=== PATIENT | female | born 1995 | race Caucasian/White ===

== ENCOUNTER 2018-07-11 12:03 | Emergency (ER) | payer BC ==
[~2018-07-11] VITALS: Ht 167.6 cm; Wt 54.4 kg
[2018-07-11] MEDS ORDERED: METO50TA16 PO (12:17)
[2018-07-11] MEDS ORDERED: CYCLOBENZAPRINE 10 MG (12:17)
[2018-07-11] MEDS ORDERED: GABA-534 PO (12:17)
[2018-07-11] MEDS ORDERED: MAGN400O6 PO (12:17)
[2018-07-11] MEDS ORDERED: LOPE2CAP40 PO (12:17)
[2018-07-11] MEDS ORDERED: CLON0.1T PO (12:17)
[2018-07-11] MEDS ORDERED: TRAZ-214 PO (12:17)
[2018-07-11] MEDS ORDERED: FAMO1TAB29 PO (12:17)
[2018-07-11] MEDS ORDERED: ONDA4TAB8 PO (12:17)
[2018-07-11] MEDS ORDERED: ACET-2605 PO (12:17)
[2018-07-11] MEDS ORDERED: BISM262O28 PO (12:17)
[2018-07-11] MEDS ORDERED: MELA1TAB9 PO (12:17)
[2018-07-11] MEDS ORDERED: RISP1TAB27 PO (12:17)
[2018-07-11] MEDS ORDERED: IBUP-1957 PO (12:17)
[2018-07-11] MEDS ORDERED: IBUPROFEN 600 MG TABLET PO ONE (12:30)
[2018-07-11] MEDS ORDERED: IBUPROFEN 600 MG TABLET ONE (12:37)
[2018-07-11 13:05] VITALS: BP 115/69
--- NOTE | 2018-07-11 13:05 | NUR ---
Patient discharged to home in stable conditon with staff from detox center. Written and verbal after care instructions given. Patient verbalizes understanding of instructions.
== END 2018-07-11 13:06 | disposition home or self-care (01) ==
LOC: ER 12:07
DX: R07.89 Other chest pain (principal); Z88.2 Allergy status to sulfonamides; Z88.8 Allergy status to other drugs, medicaments and biological substances
CPT/HCPCS: 71045; 93005; A4663

== ENCOUNTER 2018-08-06 22:23 | Emergency (ER) | payer BC ==
[~2018-08-06] VITALS: Ht 167.6 cm; Wt 56.7 kg
[~2018-08-06 22:23] MED LIST: ACET-2605 PO; BISM262O28 PO; CLON0.1T PO; CYCLOBENZAPRINE 10 MG; FAMO1TAB29 PO; GABA-534 PO; IBUP-1957 PO; LOPE2CAP40 PO; MAGN400O6 PO; MELA1TAB9 PO; METO50TA16 PO; ONDA4TAB8 PO; RISP1TAB27 PO; TRAZ-214 PO
--- NOTE | 2018-08-06 22:55 | NUR ---
PT A/OX4, ABLE TO FOLLOW COMMANDS. PT C/O N/V/D X 4 DAYS. PT IS A CURRENT RESIDENT AT AN ETOH REHAB AND HAS BEEN SOBER FOR 5 DAYS. PT DENIES PAIN, C/P, SOB. SECONDARY COMPLAINT: R EYE IRRITATION. R EYE APPEARS RED.
--- NOTE | 2018-08-06 23:09 | NUR ---
ARIANA GARRETT AT BEDSIDE FOR MSE.
[2018-08-06] MEDS ORDERED: IV NORMAL SALINE 1000 ML BAG IV ONE (23:15)
[2018-08-06] MEDS ORDERED: ONDANSETRON 4 MG/2 ML VIAL IV ONE (23:15)
[2018-08-06] MEDS ORDERED: KETOROLAC TROMETHAMINE 30 MG INJ IVP ONE (23:15)
[2018-08-06] MEDS ORDERED: PANTOPRAZOLE SODIUM 40 MG VIAL IV ONE (23:15)
[2018-08-06] MEDS ORDERED: KETOROLAC TROMETHAMINE 30 MG INJ ONE (23:26)
[2018-08-06] MEDS ORDERED: PANTOPRAZOLE SODIUM 40 MG VIAL ONE (23:26)
[2018-08-06] MEDS ORDERED: ONDANSETRON 4 MG/2 ML VIAL ONE (23:26)
[2018-08-06 23:34] LABS: BASOPHILS % (AUTO) 0.2 % (0.0-2.0); EOSINOPHILS # (AUTO) 0.2 K/uL (0.0-0.7); EOSINOPHILS % (AUTO) 2.1 % (0.0-7.0); HEMATOCRIT 36.2 % (31.2-41.9); HEMOGLOBIN 12.8 g/dL (10.9-14.3); LYMPHOCYTES # (AUTO) 1.9 K/uL (20.0-40.0); LYMPHOCYTES % (AUTO) 21.4 % (20.5-51.5); MEAN CORPUSCULAR HEMOGLOBIN 29.9 uug (24.7-32.8); MEAN CORPUSCULAR HGB CONC 35 g/dL (32.3-35.6); MEAN CORPUSCULAR VOLUME 84.4 fL (75.5-95.3); MONOCYTES # (AUTO) 0.7 K/uL (2.0-10.0); MONOCYTES % (AUTO) 8.1 % (0.0-11.0); NEUTROPHILS # (AUTO) 6.2 K/uL (1.8-8.9); NEUTROPHILS % (AUTO) 68.2 % (38.5-71.5); PLATELET COUNT (AUTO) 182 K/uL (179-408); RED BLOOD CELL COUNT(AUTO) 4.29 MIL/uL (3.63-4.92)
[2018-08-06 23:50] LABS: CARBON DIOXIDE 34 mmol/L (21-32); CHLORIDE 100 mmol/L (98-107); CREATININE 0.8 mg/dL (0.6-1.3); GLUCOSE 90 mg/dL (74-106); POTASSIUM 4.2 mmol/L (3.5-5.1); UREA NITROGEN, BLOOD 4 mg/dL (7-18)
[2018-08-06 23:55] LABS: ALANINE AMINOTRANSFERASE 24 U/L (14-59); ALKALINE PHOSPHATASE 59 U/L (50-136); ASPARTATE AMINOTRANSFERASE 34 U/L (15-37); BILIRUBIN,DIRECT 0.1 mg/dL (0.0-0.2); BILIRUBIN,TOTAL 0.7 mg/dL (0.2-1.0); TOTAL PROTEIN, SERUM 6.6 g/dL (6.4-8.2)
[2018-08-07] MEDS ORDERED: DIAZEPAM 5 MG TABLET ONE (00:51)
[2018-08-07] MEDS ORDERED: DIAZEPAM 2 MG TABLET PO ONE (01:00)
[2018-08-07] MEDS ORDERED: IV NORMAL SALINE 1000 ML BAG IV ONE (01:00)
--- NOTE | 2018-08-07 01:37 | NUR ---
Patient discharged to home in stable conditon. Written and verbal after care instructions given. Patient verbalizes understanding of instructions. PT D/C BACK TO REHAB UNDER CARE OF STAFF MEMBER. PT SELF-AMABULTED WITHOUT DIFFICULTY. ALL BELONGINGS W/ PT. 20G L AC IV ACCESS REMOVED PRIOR TO D/C - INNER CANNULA INTACT.
[2018-08-07 01:38] VITALS: BP 112/69
== END 2018-08-07 01:39 | disposition home or self-care (01) ==
LOC: ER 22:25
DX: A08.4 Viral intestinal infection, unspecified (principal); B30.9 Viral conjunctivitis, unspecified; F11.10 Opioid abuse, uncomplicated; F17.200 Nicotine dependence, unspecified, uncomplicated; Z88.2 Allergy status to sulfonamides; Z88.8 Allergy status to other drugs, medicaments and biological substances
CPT/HCPCS: 36415; 80048; 80076; 84702; 85025; 96361; 96374; 96375; 99283; C9113; J1885; J2405; A4663; J7030

== ENCOUNTER 2018-08-22 16:42 | Inpatient (IN) | payer BC, OTHER ==
[~2018-08-22] VITALS: Ht 167.6 cm; Wt 53.1 kg
--- NOTE | 2018-08-22 16:55 | NUR ---
Pre-Assessment Note Pt. is a 22 y/o female seeking admittance for the medically manage withdrawal from opiates and benzodiazepines. Pt. states that she has been smoking fentanyl for the past 10 days and ingesting either klonopin or xanax for the past 7 days. Pt. reports just coming out of [facility] 10 days ago and immediately using once again. Pt. reports last using fentanyl at 1300 today. Pt. is currently mildly intoxicated and reports as much. V/S WNL Will Continue admission assessment once on unit.
--- NOTE | 2018-08-22 17:07 | NUR ---
Admission Note Pt. is a 22 y/o female admittance for the medically manage withdrawal from opiates and benzodiazepines. Pt. states that she has been smoking fentanyl for the past 10 days and ingesting either klonopin or xanax for the past 7 days. Pt. reports just coming out of [facility] 10 days ago and immediately using once again. Pt. reports last using fentanyl at 1300 today. Pt. is currently mildly intoxicated and reports as much. Substance Use Hx: 1) Fentanyl 1-1.5 g daily for the past 10 days. Pt. last used 0.5g @ 1300 08/22/2018. Pt. first used Fentanyl 10 days ago. 2) Xanax/Klonopin 2mg/4mg daily for the past 7 days. Pt. last used yesterday 08/21/2015 around 1000. Pt. reports first using klonopin and Xanax at age 15. Pt. reports a history of polysubstance abuse and multiple treatment center stays. Pt. states that she only recently started using fentanyl 10 days ago but she's been using heroin since the age of 18. Pt. states that her typical withdrawal symptoms are N/V diarrhea and fevers. Pt. reports experiencing a seizure during a previous benzodiazepine withdrawal about 3 years ago. She reports that being the only times she's ever had a seizure and she was trying to stop "cold turkey" at home when she had a seizure and was taken to the E.R. Pt. reports a history of multiple drug overdoses, but denies having blackouts while using. Medical Hx: Pt. states that a little over a month ago pt. was diagnosed with inappropriate sinus tachycardia for which she was prescribed metoprolol BID. States she has a measurement supervisor she sees at [facility]. Pt. also reports that her PCP is Dr. Eden, and her psychiatrist is Dr. Allison Mendez. Pt. states that she was also diagnosed with bipolar disorder at the age of 18 for which she takes risperdal. Pt. was diagnosed with insomnia at age 16 for which she was prescribed trazodone and gabapentin. Pt. states she was also diagnosed with anxiety and depression at the age of 12 for which she denies taking any medication. Psychiatric Hx: Pt. reports having a history of SI and suicide attempt about 4 years ago. Pt. attempted to OD on heroin and was taken to the E.R. in [place] which led her to be placed on a 5150 for SI. Pt. does not remember the name of the mental health facility she was taken to. Pt. is currently A/O x 4 and denies any feelings of SI and HI. Treatment Hx: Pt. reports just getting out of [facility] 10 days ago. Pt. reports only spending about a week there for Heroin and Benzodiazepine detoxification. Pt. reports using the day she was discharged. Motivation Pt. reports of a period of 3 years since she began using that she was able to remain completely sober but refused to disclosed the triggers which led her to begin using once again. Pt stated "Can you please just leave me alone and stop asking me shit. My life is shitty that's why I use." At this point pt. became guarded and stated " My life is shit, I have a lot of weird shitty things going on, and I need to get sober because it's all shit. Just stop asking me questions already and just make up whatever you want, I don't care." Pt. reports that the reason she's in treatment now is because her family had an "intervention" which resulted in her coming here.
[2018-08-22] MEDS ORDERED: LOPERAMIDE HCL 2 MG CAPSULE PO PRN ×2 (18:00)
[2018-08-22] MEDS ORDERED: HYDROXYZINE PAMOATE 25 MG CAPSULE PO PRN (18:00)
[2018-08-22] MEDS ORDERED: DIAZEPAM 5 MG TABLET PO PRN (18:00)
[2018-08-22] MEDS ORDERED: CLONIDINE HCL 0.1 MG TABLET PO PRN (18:00)
[2018-08-22] MEDS ORDERED: BUPRENORPHINE HCL 2 MG TAB.SUBL SL PRN (18:00)
[2018-08-22] MEDS ORDERED: MIRALAX 17 GM POWD.PACK PO PRN (18:00)
[2018-08-22] MEDS ORDERED: diphenhydrAMINE 50 MG CAPSULE PO PRN (18:00)
[2018-08-22] MEDS ORDERED: DIAZEPAM 10 MG TABLET PO PRN ×2 (18:00)
[2018-08-22] MEDS ORDERED: MAGNESIUM HYDROXIDE 30 ML LIQUID UDC PO PRN (18:00)
[2018-08-22] MEDS ORDERED: LORAZEPAM 2 MG/1 ML VIAL IM PRN (18:00)
[2018-08-22] MEDS ORDERED: MAG HYDROX/AL HYDROX/SIMETH 30 ML LIQUID UDC PO PRN (18:00)
[2018-08-22] MEDS ORDERED: ONDANSETRON 4 MG/2 ML VIAL IM PRN (18:00)
[2018-08-22 18:20] LABS: *URINE HCG, QUAL NEGATIVE (NEGATIVE)
[2018-08-22 18:31] LABS: *AMPHETAMINE, URINE NEGATIVE (NEGATIVE); *BARBITURATE, URINE NEGATIVE (NEGATIVE); *CANNABINOID, URINE NEGATIVE (NEGATIVE); *COCCAINE, URINE NEGATIVE (NEGATIVE); *OPIATE, URINE POSITIVE (NEGATIVE); *PHENCYCLIDINE SCREEN,URINE NEGATIVE (NEGATIVE)
--- NOTE | 2018-08-22 19:43 | NUR ---
Start of shift note Received report from day shift nurse. Pt is a 22 yo female, A+Ox4, presenting to [facility] for medically supervised Benzo/Opiate withdrawal. Pt noted with fatigue, agitation, and anxiety. Pt has HX of sinus tachycardia, bipolar disorder, depression, anxiety, and insomnia which will be monitored during shift. Pt is on PRN medications and is to start 5 day Subtext and 5 day Valium tapers tomorrow, tolerated well. Respirations even and unlabored. Will continue to monitor. Addendum: 08/23/18 at 0245 by CHAD MCMILLAN LVN Also has HX of seizure which will be monitored.
[2018-08-22 20:14] VITALS: BP 91/50
--- NOTE | 2018-08-22 20:14 | NUR ---
COWS and CIWA Assessment COWS: 10 and CIWA: 10. Pt noted with pulse 90, chills, restlessness, mild diffuse discomfort, stuffy nose, stomach cramps, fine tremors, yawning, anxiety, agitation, nausea, and sweat on brow. Respirations even and unlabored. Will continue to monitor.
[2018-08-22] MEDS: ONDANSETRON ODT 4 MG TAB.RAPDIS SL PRN (20:33)
--- NOTE | 2018-08-22 20:33 | NUR ---
PRN Zofran Pt c/o nausea and requested for PRN Zofran. Medication given and tolerated well. Will reassess within 1 HR. Will continue to monitor.
[2018-08-22 20:49] LABS: BASOPHILS # (AUTO) 0.1 K/uL (0.0-8.0); BASOPHILS % (AUTO) 0.8 % (0.0-2.0); EOSINOPHILS # (AUTO) 0.2 K/uL (0.0-0.7); EOSINOPHILS % (AUTO) 3.1 % (0.0-7.0); HEMATOCRIT 37.2 % (31.2-41.9); HEMOGLOBIN 12.8 g/dL (10.9-14.3); LYMPHOCYTES # (AUTO) 2.1 K/uL (20.0-40.0); LYMPHOCYTES % (AUTO) 27.1 % (20.5-51.5); MEAN CORPUSCULAR HEMOGLOBIN 29.4 uug (24.7-32.8); MEAN CORPUSCULAR HGB CONC 35 g/dL (32.3-35.6); MEAN CORPUSCULAR VOLUME 85.2 fL (75.5-95.3); MONOCYTES # (AUTO) 0.5 K/uL (2.0-10.0); MONOCYTES % (AUTO) 6.8 % (0.0-11.0); NEUTROPHILS # (AUTO) 4.9 K/uL (1.8-8.9); NEUTROPHILS % (AUTO) 62.2 % (38.5-71.5); PLATELET COUNT (AUTO) 284 K/uL (179-408); RED BLOOD CELL COUNT(AUTO) 4.36 MIL/uL (3.63-4.92); WHITE BLOOD COUNT (AUTO) 7.8 K/uL (3.8-11.8)
[2018-08-22 21:06] LABS: ALANINE AMINOTRANSFERASE 21 U/L (14-59); ALKALINE PHOSPHATASE 59 U/L (50-136); ASPARTATE AMINOTRANSFERASE 17 U/L (15-37); BILIRUBIN,TOTAL 0.9 mg/dL (0.2-1.0); CARBON DIOXIDE 31 mmol/L (21-32); CHLORIDE 100 mmol/L (98-107); CREATININE 0.7 mg/dL (0.6-1.3); ETHANOL < 3 MG/DL (0-0); GLUCOSE 110 mg/dL (74-106); MAGNESIUM 1.9 mg/dL (1.8-2.4); POTASSIUM 3.9 mmol/L (3.5-5.1); TOTAL PROTEIN, SERUM 7.1 g/dL (6.4-8.2); UREA NITROGEN, BLOOD 8 mg/dL (7-18)
[2018-08-22 21:29] LABS: THYROID STIMULATING HORMONE 0.728 mIU/mL (0.358-3.740)
--- NOTE | 2018-08-22 21:30 | NUR ---
PRN Zofran Reassessment Pt expresses reduction of nausea. No s/s of ASE noted at this time. Respirations even and unlabored. Will continue to monitor.
--- NOTE | 2018-08-22 23:17 | NUR ---
PRN Valium Pt noted with CIWA: 11, nausea, fine tremors, sweat on brow, anxiety, agitation, and itchiness. PRN Valium 10mg given and tolerated well. Respirations even and unlabored. Will reassess within 1 HR. Will continue to monitor.
[2018-08-23 00:17] VITALS: BP 101/68
--- NOTE | 2018-08-23 00:17 | NUR ---
COWS and CIWA Assessment and PRN Valium Reassessment Pt expresses reduction of anxiety. No s/s of ASE noted at this time. COWS: 9 and CIWA: 8. Pt noted with pulse 84, itchiness, anxiety, agitation, sweat on forehead, fine tremors, nausea, enlarged pupils, mild diffuse discomfort, stuffy nose, and stomach cramps. Respirations even and unlabored. Will continue to monitor.
--- NOTE | 2018-08-23 04:33 | NUR ---
V/S refused and COWS and CIWA Assessment deferred for sleep. Respirations even and unlabored. Will continue to monitor.
--- NOTE | 2018-08-23 07:00 | NUR ---
End of shift note Pt was continuously noted with generalized body aches, anxiety, fatigue, and agitation. Pt remained in room for entire shift. Pt remained compliant and cooperative with all aspects of treatment. Pt was given PRN Zofran @2032 and PRN Valium 10mg @2316. Pt is on PRN medications and is to start 5 day Subutex and 5 day Valium tapers today. Pt slept for a total of 9 HRS. Last COWS: 9 and Last CIWA: 8 @0017. Respirations even and unlabored. Will endorse to day shift nurse.
--- NOTE | 2018-08-23 07:30 | NUR ---
START OF SHIFT NOTE Received report from night nurse, 22 years old female admitted for Opioids and Benzo withdrawal and continues with %days Valium and Subutex taper tolerating well. Per endorsement patient received PRN Zofran, Valium, last COWS-9, CIWA-8, slept for 9 hours. Received patient asleep responsive to verbal and tactile stimuli. Breathing normal no SOB noted. Skin intact warm and dry to touch. Vital sign WNL. All safety measures in place. Will cont with plan of care.
[2018-08-23 08:00] VITALS: BP 99/62
[2018-08-23] MEDS: BUPRENORPHINE HCL 2 MG TAB.SUBL SL SCH ×4 (08:25→20:36)
[2018-08-23] MEDS: DIAZEPAM 10 MG TABLET PO SCH ×3 (08:25→20:35)
[2018-08-23] MEDS: MULTIVITAMINS,THERAPEUTIC TABLET PO SCH (08:25)
--- NOTE | 2018-08-23 08:25 | NUR ---
COWS/CIWA ASSESSMENT COWS-13, CIWA-12, patient presented with anxiety, agitation, restless, bilateral hand tremors, chills, sweats, anhedonia, nausea, hot cold flashes, runny nose, yawning. Will cont to monitor.
[2018-08-23] MEDS: NICOTINE 21 MG/24HR PATCH TD SCH (08:28)
[2018-08-23] MEDS ORDERED: TUBERCULIN,PURIF.PROT.DERIV. 5 TU/0.1 ML TEST ID ONE (09:00)
[2018-08-23] MEDS ORDERED: 5 DAY TAPER VALIUM-SERENITY PROTOCOL PO PRN (09:00)
[2018-08-23] MEDS: NICOTINE POLACRILEX 4 MG GUM-PK OF TEN BC PRN ×3 (10:07→19:45)
[2018-08-23] MEDS: ONDANSETRON ODT 4 MG TAB.RAPDIS SL PRN ×3 (10:07→20:36)
--- NOTE | 2018-08-23 10:07 | NUR ---
PRN MEDICATIONS Patient c/o nausea no emesis and also craving for nicotine. PRN Zofran SL and Nicotine gum was administered as ordered. Will cont to monitor.
--- NOTE | 2018-08-23 10:37 | NUR ---
PRN MEDICATIONS REASSESSMENT Patient reported nausea improved and nicotine craving subsided mediations were effective.
[2018-08-23 12:00] VITALS: BP 101/60
--- NOTE | 2018-08-23 12:25 | NUR ---
COWS/CIWA ASSESSMENT Patient continues to exhibiting s/s of withdrawal such as anxiety, agitation, restless, bilateral hand tremors, chills, sweats, anhedonia, nausea, hot cold flashes,unkempt, abdominal cramps, runny nose, COWS-12, CIWA-11, Will cont to monitor.
[2018-08-23] MEDS ORDERED: 5 DAY TAPER BUPRENORPHINE -SERENITY PROTOCOL SL PRN (13:00)
--- NOTE | 2018-08-23 14:17 | NUR ---
PRN NICOTINE GUM Patient reported having nicotine craving. PRN Nicotine gum was administered as ordered. Will cont to monitor and reassess.
--- NOTE | 2018-08-23 14:47 | NUR ---
NICOTINE REASSESSMENT Patient verbalized nicotine craving subsided gum was effective.
[2018-08-23 16:00] VITALS: BP 106/66
[2018-08-23] MEDS: METOPROLOL TARTRATE 25 MG TABLET PO SCH ×2 (16:02→21:00)
[2018-08-23] MEDS: GABAPENTIN 300 MG CAPSULE PO SCH ×3 (16:02→20:36)
--- NOTE | 2018-08-23 16:07 | NUR ---
PRN ZOFRAN Complaints of nausea. Zofran odt prn per MD order given.
--- NOTE | 2018-08-23 16:08 | NUR ---
NEURONTIN neurontin 100mg po due at 1700 held. Too close from last dose given.
--- NOTE | 2018-08-23 16:27 | NUR ---
ZOFRAN REASSESSMENT Per patient Zofran was effective nausea improved.
--- NOTE | 2018-08-23 19:14 | NUR ---
END OF SHIFT NOTE Patient is alert awake newly admitted for Benzo and Opioids withdrawal and patient stated on Valium taper for CIWA score was 10. and due to start Subutex taper in AM. Patient presented with anxiety, agitation, restless, anhedonia, sweats, bilateral hand tremors, Patient received his scheduled Valium 5 mg PO noted to be effective. Patient started on PO antibiotic for right side face cheek picking mayela skin intact to the site. ATB tolerated well. Encourage PO fluids as tolerated. Patient encouraged to vernalized feelings. Patient encouraged to socialized with others. Patient vernalized understanding. Last CIWA score was-11. Vital signs WNL. Patient denies any SI/HI. All safety measures in place. Patient endorsed to night nurse in stable condition. Addendum: 08/23/18 at 1921 by KIESHA PERRIN LVN wrong patient -
--- NOTE | 2018-08-23 19:21 | NUR ---
END OF SHIFT NOTE Patient is alert awake oriented x4 continues with 5 days Subutex and 5 days Valium taper tolerating well. Patient presented with anxiety, agitation, restless, anhedonia, bilateral hand tremors, nausea, nicotine craving chills, sweats, yawning, worried, sad facial expression. Patient started on Subutex and Valium taper with COWS score 13 and CIWA score 12. Patient received PRN Nicotine gum x2 Zofran x2 noted to be effective. Patient rested in her room most of the shift. Encourage patient to attend groups and activities and use diversional activities to alleviate anxiety. patient verbalized understanding. Last CIWA-11, COWS-11. Vital signs WNL. Patient denies any SI/HI. All safety measures in place. Patient endorsed to night nurse in stable condition.
--- NOTE | 2018-08-23 19:45 | NUR ---
START OF SHIFT NOTE Rcvd report from outgoing nurse. Pt is a 22 y/o female A/O to person, place, time, and purpose. Pt was admitted for medically supervised withdrawal from Benzodiazepines and Heroin. Pt is on day 2 of a 5 day Subutex and Valium taper. Pt has been presenting w/ nausea, diarrhea, sweats, chills, body aches, tremors, restlessness, restless legs, anxiety, flat affect, and depressed and withdrawn mood. Pt rcvd PRN Zofran x2 and Nicotine gum x2 and were noted effective by outgoing nurse. Last CIWA 11 and COWS 11 @ 1600. Call light is within reach. Pt will continue to be monitored and needs met.
--- NOTE | 2018-08-23 19:45 | NUR ---
PRN NICOTINE GUM ADMINISTRATION Nicotine gum 4mg for cravings. Will reassess effectiveness in 1 hr.
[2018-08-23 20:03] VITALS: BP 101/64
--- NOTE | 2018-08-23 20:06 | NUR ---
CIWA AND COWS ASSESSMENT CIWA 12 and COWS 12. Pt has been presenting w/ nausea, diarrhea, sweats, chills, body aches, tremors, restlessness, restless legs, anxiety, flat affect, and depressed and withdrawn mood. V/S: T:98.2, P:73, RR:14, SPO2:96, BP:101/64.
[2018-08-23] MEDS: TRAZODONE 100 MG TABLET PO SCH (20:36)
[2018-08-23] MEDS: risperiDONE 1 MG TABLET PO SCH (20:36)
--- NOTE | 2018-08-23 20:36 | NUR ---
PRN ZOFRAN ADMINISTRATION Zofran 4mg SL given for nausea. Pt c/o nausea w/ no emesis. Will reassess pt in 1 hr.
--- NOTE | 2018-08-23 20:45 | NUR ---
PRN NICOTINE GUM REASSESSMENT Pt states cravings have resided. Medication tolerated well. Will continue to monitor pt.
--- NOTE | 2018-08-23 21:36 | NUR ---
PRN ZOFRAN REASSESSMENT Pt states relief from nausea. Pt has no cases of emesis. Will continue to monitor pt.
--- NOTE | 2018-08-24 00:05 | NUR ---
CIWA AND COWS DEFERRED Pt is in bed w/ her eyes closed. Pt's respirations are unlabored.
--- NOTE | 2018-08-24 04:01 | NUR ---
CIWA AND COWS DEFERRED Pt is in bed w/ her eyes closed. Pt's respirations are unlabored and even.
--- NOTE | 2018-08-24 07:11 | NUR ---
END OF SHIFT NOTE Endorsed pt to oncoming nurse. Pt is a 22 y/o female A/O to person, place, time, and purpose. Pt was admitted for medically supervised withdrawal from Benzodiazepines and Heroin. Pt completed day 2 of a 5 day Subutex and Valium taper. Pt has been presenting w/ nausea, diarrhea, sweats, chills, body aches, tremors, drowsiness, lethargy, restlessness, restless legs, anxiety, flat affect, and depressed and withdrawn mood. Pt denies any S/I or H/I. PRN Zofran and Nicotine gum were given and noted effective. Pts fluid intake was 1091ml and she slept for 10 hrs. Last CIWA 12 and COWS 12 @ 1999. Call light is within reach.
--- NOTE | 2018-08-24 07:30 | NUR ---
Start of shift note; Received report from night nurse. Patient is a 22 year old female admitted on 08/22/18 for Benzodiazepine and fentanyl withdrawal. Patient was placed on a 5 day Subutex and 5 day Valium taper. Patient's last CIWA score is 12 last COWS score 12 per endorsement. Patient slept for 10 hours. All safety measures secured. Will continue to monitor patient.
[2018-08-24 08:00] VITALS: BP 110/72
--- NOTE | 2018-08-24 08:00 | NUR ---
COWS/CIWA assessment; Patient is AOX4, presented with anxiety, agitation, complaining of stomach cramps, diaphoresis,nausea and vomiting, tremors, and muscle aches. Patient's current COWS score is 16 and CIWA is 12. Will continue to monitor patient.
[2018-08-24] MEDS: NICOTINE POLACRILEX 4 MG GUM-PK OF TEN BC PRN ×5 (08:08→20:58)
[2018-08-24] MEDS: ONDANSETRON ODT 4 MG TAB.RAPDIS SL PRN ×3 (08:08→20:25)
[2018-08-24 08:09] LABS: HEPATITIS B SURFACE AG Negative (Negative)
--- NOTE | 2018-08-24 08:16 | NUR ---
PRN medication; Patient is reported nausea and 1 episode of vomiting. PRN Zofran 4mg ODT given. Patient also requested for Nicotine gum, PRN Nicotine gum given.
[2018-08-24] MEDS: NICOTINE 21 MG/24HR PATCH TD SCH (09:00)
--- NOTE | 2018-08-24 09:16 | NUR ---
Re-assessment; Patient verbalized effectiveness of medication. No further emesis or nausea noted.
[2018-08-24] MEDS: METOPROLOL TARTRATE 25 MG TABLET PO SCH ×2 (09:31→20:19)
[2018-08-24] MEDS: MULTIVITAMINS,THERAPEUTIC TABLET PO SCH (09:31)
[2018-08-24] MEDS: GABAPENTIN 300 MG CAPSULE PO SCH ×3 (09:31→20:17)
[2018-08-24] MEDS: BUPRENORPHINE HCL 2 MG TAB.SUBL SL SCH ×3 (09:31→20:18)
[2018-08-24] MEDS: DIAZEPAM 5 MG TABLET PO SCH ×4 (09:31→20:17)
--- NOTE | 2018-08-24 09:32 | NUR ---
Therapist prompted client to attend group therapy.
[2018-08-24 12:00] VITALS: BP 112/82
--- NOTE | 2018-08-24 12:00 | NUR ---
COWS/CIWA assessment; Patient is AOX4, presented with anxiety, agitation, complaining of stomach cramps, diaphoresis,nausea and vomiting, tremors, and muscle aches. Patient's current COWS score is 16 and CIWA is 1. Will continue to monitor patient.
[2018-08-24 16:00] VITALS: BP 103/67
--- NOTE | 2018-08-24 17:00 | NUR ---
PRN medication; Patient requested for nicotine gum. Educated patient regarding the importance of not smoking in order to prevent nicotine toxicity, patient verbalized understanding.
[2018-08-24] MEDS ORDERED: NADO40TA18 PO (17:05)
[2018-08-24] MEDS ORDERED: RANI150T43 PO (17:05)
[2018-08-24] MEDS ORDERED: PROP80TA4 PO (17:05)
[2018-08-24] MEDS ORDERED: FOLI1TAB16 PO (17:05)
[2018-08-24] MEDS ORDERED: TEST1.25 TD (17:08)
[2018-08-24] MEDS ORDERED: MILK150C2 PO (17:08)
[2018-08-24] MEDS ORDERED: trintellix PO (17:08)
--- NOTE | 2018-08-24 18:28 | NUR ---
End of shift note; Patient is AOX4, presented with anxiety, agitation, complaining of stomach cramps, diaphoresis,nausea and vomiting, tremors, and muscle aches. Patient's last COWS score is 15 and CIWA is 10 at 1600. Medications were effective in reducing withdrawal symptoms. All safety measures secured. Patient remained compliant with treatment plan and medication regime. All safety measures secured. Met all needs.
--- NOTE | 2018-08-24 19:42 | NUR ---
START OF SHIFT NOTE Rcvd report from outgoing nurse. Pt is a 22 y/o female A/O to person, place, time, and purpose. Pt was admitted for medically supervised withdrawal from Benzodiazepines and Opiates, Pt is on day 2 of a 5 day Valium and Subutex taper. Pt has been presenting w/ sweats, chills, body aches, nausea, diarrhea, tremors, flushing, lethargy, drowsiness, blunt affect, and depressed and withdrawn mood. Pt rcvd PRN Zofran x2 and Nicotine Gum x3, both noted effective by outgoing nurse. Last CIWA 10 and COWS 15 @ 1600. Call light is within reach. Pt will continue to be monitored and needs met.
[2018-08-24 20:06] VITALS: BP 102/68
--- NOTE | 2018-08-24 20:08 | NUR ---
CIWA AND COWS ASSESSMENT CIWA 12 and COWS 16. Pt has been presenting w/ sweats, chills, body aches, nausea, diarrhea, tremors, flushing, lethargy, drowsiness, blunt affect, and depressed and withdrawn mood. V/S: T:98.5, P:86, RR:14, SPO2:97, BP:102/68.
[2018-08-24] MEDS: TRAZODONE 100 MG TABLET PO SCH (20:17)
--- NOTE | 2018-08-24 20:17 | NUR ---
PRN IMODIUM ADMINISTRATION Imodium 4mg for 1st bout of diarrhea. Will reassess pt in 1hr.
--- NOTE | 2018-08-24 20:25 | NUR ---
PRN ZOFRAN ADMINISTRATION Zofran 4mg SL given for nausea w/ no emesis. Will reassess pt in 1 hr.
[2018-08-24] MEDS: risperiDONE 1 MG TABLET PO SCH (20:41)
--- NOTE | 2018-08-24 20:58 | NUR ---
PRN NICOTINE GUM ADMINISTRATION Nicotine Gum given for cravings. Claudio reassess pt in 1 hr.
--- NOTE | 2018-08-24 21:17 | NUR ---
PRN IMODIUM REASSESSMENT Pt states no more bouts of diarrhea. Will continue to monitor pt.
--- NOTE | 2018-08-24 21:25 | NUR ---
PRN ZOFRAN REASSESSMENT Pt states relief from nausea. Will continue to monitor pt.
--- NOTE | 2018-08-24 21:58 | NUR ---
PRN NICOTINE GUM REASSESSMENT Pt is in bed w/ her eyes closed. Pt's respirations are unlabored and even.
--- NOTE | 2018-08-25 | NUR ---
CIWA AND COWS DEFERRED Pt is in bed w/ her eyes closed. Pt's respirations are unlabored and even.
--- NOTE | 2018-08-25 04:00 | NUR ---
CIWA AND COWS DEFERRED Pt is in bed w/ her eyes closed. Pt's respirations are unlabored and even.
--- NOTE | 2018-08-25 07:22 | NUR ---
END OF SHIFT NOTE Endorsed pt to oncoming nurse. Pt is a 22 y/o female A/O to person, place, time, and purpose. Pt was admitted for medically supervised withdrawal from Benzodiazepines and Opiates, Pt completed day 2 of a 5 day Valium and Subutex taper. Pt continued presenting w/ sweats, chills, body aches, nausea, diarrhea, tremors, flushing, lethargy, drowsiness, blunt affect, and depressed and withdrawn mood. Pt denies any S/I or H/I. PRN Imodium, Zofran SL, and Nicotine Gum, were given and noted effective. Pts fluid [id number] and she slept for 10 hrs. Last CIWA 12 and COWS 16 @ 1999. Call light is within reach.
--- NOTE | 2018-08-25 07:30 | NUR ---
Start of Shift Notes: Received endorsement from night nurse. Patient is a 22 year old female admitted for opiate and BZO withdrawal who was placed on a 5-day Subutex and 5-day Valium taper as ordered. No adverse reactions noted. Per night report, patient was givenPRN Imodium, Zofran, and Nicotine gum during the night. Last COWS 16, CIW 1 12. Slept for a total of 10 hours. All needs met and attended. Will continue to monitor closely.
[2018-08-25 08:00] VITALS: BP 104/64
[2018-08-25] MEDS: NICOTINE 21 MG/24HR PATCH TD SCH (09:00)
[2018-08-25] MEDS ORDERED: BUPRENORPHINE HCL 2 MG TAB.SUBL SL SCH (09:00)
[2018-08-25] MEDS: MULTIVITAMINS,THERAPEUTIC TABLET PO SCH (09:03)
[2018-08-25] MEDS: DIAZEPAM 5 MG TABLET PO SCH ×3 (09:03→20:57)
[2018-08-25] MEDS: GABAPENTIN 300 MG CAPSULE PO SCH ×3 (09:03→20:57)
--- NOTE | 2018-08-25 09:03 | NUR ---
COWS/CIWA ASSESSMENT COWS-14, CIWA-10, patient presented with anxiety, agitation, restless, bilateral hand tremors, chills, sweats, anhedonia,body aches,unkempt room, unwashed hair, flushed face,poor oral hygiene, nausea, hot cold flashes, runny nose, yawning. Patient was given her scheduled medications. Will cont to monitor.
[2018-08-25] MEDS: METOPROLOL TARTRATE 25 MG TABLET PO SCH ×2 (09:04→21:05)
[2018-08-25] MEDS: NICOTINE POLACRILEX 4 MG GUM-PK OF TEN BC PRN ×5 (09:10→22:05)
[2018-08-25] MEDS: IBUPROFEN 600 MG TABLET PO PRN (09:10)
[2018-08-25] MEDS: ONDANSETRON ODT 4 MG TAB.RAPDIS SL PRN ×2 (09:10→18:31)
--- NOTE | 2018-08-25 09:10 | NUR ---
PRN MEDICATIONS Patient c/o nausea no emesis and also craving for nicotine and general body aches 5/10. PRN Zofran SL and Nicotine gum, Motrin 600mg PO was administered as ordered. Will cont to monitor.
--- NOTE | 2018-08-25 09:40 | NUR ---
NICOTINE/ZOFRAN REASSESSMENT Per patient nausea improved and nicotine craving decreased. Medications were effective.
--- NOTE | 2018-08-25 10:10 | NUR ---
MOTRIN REASSESSMENT Patient verbalized Motrin was effective pain lower to 2/10.
[2018-08-25 12:00] VITALS: BP 107/60
--- NOTE | 2018-08-25 13:39 | NUR ---
PRN NICOTINE GUM Patent c/o nicotine craving. PRN Nicotine gum was administered as ordered.
[2018-08-25] MEDS: BUPRENORPHINE HCL 2 MG TAB.SUBL SL SCH ×2 (14:11→20:56)
--- NOTE | 2018-08-25 14:11 | NUR ---
COWS/CIWA ASSESSMENT COWS-13, CIWA-11, patient continues to presented with flushed face, labile, anxiety, agitation, restless, bilateral hand tremors, chills, sweats, anhedonia, unkempt room, unwashed hair, poor oral hygiene, nausea, hot cold flashes, runny nose, yawning. Patient was given her scheduled medications. Will cont to monitor.
--- NOTE | 2018-08-25 14:19 | NUR ---
NICOTINE GUM REASSESSMENT Per patient nicotine craving subsided. Gum was effective.
[2018-08-25 16:00] VITALS: BP 110/67
--- NOTE | 2018-08-25 18:31 | NUR ---
PRN ZOFRAN Patient is c/o nausea no emesis present. PRN Zofran 4mg SL administered as ordered. Will cont to monitor and reassess.
--- NOTE | 2018-08-25 19:01 | NUR ---
ZOFRAN REASSESSMENT Per patient Zofran was effective nausea improved.
--- NOTE | 2018-08-25 19:02 | NUR ---
END OF SHIFT NOTE Patient is alert awake oriented x4 continues with 5 days Subutex and 5 days Valium taper tolerating well. Patient presented with poor eye contact, irritable, anxiety, agitation, restless, anhedonia, bilateral hand tremors, nausea, body aches, nicotine craving, chills, sweats, yawning, worried. Patient received PRN Nicotine gum x3 Zofran x2, Motrin noted to be effective. Patient rested in her room most of the shift. Encourage patient to attend groups and activities and use diversional activities to alleviate anxiety. Patient encouraged to socialized with others. Patient verbalized understanding. Last CIWA-10, COWS-13. Vital signs WNL. Patient denies any SI/HI. All safety measures in place. Patient endorsed to night nurse in stable condition.
--- NOTE | 2018-08-25 19:30 | NUR ---
START OF SHIFT Pt is a 22 y/o female admitted for Benzo and Opioid withdrawal; continues on Subutex and Valium taper and is tolerating well.Last CIWA 10,COWS 13. Pt received in bed ,resting with eyes closed, responsive upon approach, presented with anxiety, restlessness, hand tremors, nausea, body aches, nicotine craving and intermittent chills / sweats. Pt received PRN Nicotine gum x3 Zofran x2 and Motrin per day shift. All safety measures in place, bed locked in low position,call light is within reach.Pt encouraged to verbalize needs and concerns. Will continue to monitor for safety.
[2018-08-25] MEDS: ACETAMINOPHEN 325 MG TABLET PO PRN (19:57)
--- NOTE | 2018-08-25 19:57 | NUR ---
PRN Tylenol given for Temp 101.3.PO fluids encouraged; will monitor for effectiveness. PRN Nicotine given as ordered per Pt request.
[2018-08-25 20:00] VITALS: BP 112/68
[2018-08-25] MEDS: risperiDONE 1 MG TABLET PO SCH (20:56)
[2018-08-25] MEDS: TRAZODONE 100 MG TABLET PO SCH ×2 (21:00→22:14)
--- NOTE | 2018-08-25 21:00 | NUR ---
Temp is 100.3,will continue to monitor.
--- NOTE | 2018-08-25 22:00 | NUR ---
Temp 100.5.Pt is not c/o any pain or discomfort,will continue to monitor.Charge nurse notified.
--- NOTE | 2018-08-25 23:10 | NUR ---
MD Communication Around 2100, Pt with elevated temp 101.3. Tylenol administered. Tylenol ineffective. Pt is alert/oriented x4 and easily arousable. MD notified with new orders for UA & Cultures, CBC and CMP. Orders carried out. MD to see patient in AM, as stated by MD.
[2018-08-25 23:44] LABS: BASOPHILS % (AUTO) 0.2 % (0.0-2.0); EOSINOPHILS # (AUTO) 0.3 K/uL (0.0-0.7); EOSINOPHILS % (AUTO) 1.9 % (0.0-7.0); HEMATOCRIT 36.8 % (31.2-41.9); HEMOGLOBIN 12.8 g/dL (10.9-14.3); LYMPHOCYTES # (AUTO) 1.8 K/uL (20.0-40.0); LYMPHOCYTES % (AUTO) 10.5 % (20.5-51.5); MEAN CORPUSCULAR HEMOGLOBIN 29.5 uug (24.7-32.8); MEAN CORPUSCULAR HGB CONC 35 g/dL (32.3-35.6); MEAN CORPUSCULAR VOLUME 84.7 fL (75.5-95.3); MONOCYTES # (AUTO) 1.3 K/uL (2.0-10.0); MONOCYTES % (AUTO) 7.5 % (0.0-11.0); NEUTROPHILS % (AUTO) 79.9 % (38.5-71.5); PLATELET COUNT (AUTO) 218 K/uL (179-408); RED BLOOD CELL COUNT(AUTO) 4.35 MIL/uL (3.63-4.92); WHITE BLOOD COUNT (AUTO) 17.5 K/uL (3.8-11.8)
--- NOTE | 2018-08-25 23:50 | NUR ---
Temp = 99.2. was notified of elevated temp,blood drawn for lab work per orders,will continue monitoring.
[2018-08-26] VITALS: BP 92/50
--- NOTE | 2018-08-26 | NUR ---
COWS/CIWA DEFERRED Pt has been sleeping on and off,unable to assess at this time.
[2018-08-26 00:10] LABS: BILIRUBIN,TOTAL 0.9 mg/dL (0.2-1.0); CREATININE 0.9 mg/dL (0.6-1.3); POTASSIUM 3.9 mmol/L (3.5-5.1); TOTAL PROTEIN, SERUM 6.7 g/dL (6.4-8.2)
[2018-08-26 01:03] LABS: *BILIRUBIN,URIN NEGATIVE (NEGATIVE); *BLOOD, URINE Trace-intact (NEGATIVE); *CLARITY,URINE CLEAR (CLEAR); *KETONES,URINE NEGATIVE (NEGATIVE); *PROTEIN,URINE NEGATIVE (NEGATIVE); *UROBILINOGEN,URINE 0.2 E.U./dl (NORMAL); LEUKOCYTE ESTERASE ,URINE TRACE (NEGATIVE); NITRITE, URINE NEGATIVE (NEGATIVE); UGLUCOSE NEGATIVE (NEGATIVE)
[2018-08-26 01:14] LABS: *COLOR,URINE STRAW (YELLOW)
[2018-08-26 01:15] LABS: BACTERIA,URINE NONE SEEN /HPF (NONE SEEN); SQUAMOUS EPITHELIAL CELL,UR FEW /HPF (NONE SEEN); WBC,URINE 0-3 /HPF (0-3)
[2018-08-26] MEDS: ACETAMINOPHEN 325 MG TABLET PO PRN (02:31)
--- NOTE | 2018-08-26 02:34 | NUR ---
PRN TYLENOL 650 MG PO GIVEN FOR GENERALIZED BODYACHE.TEMP=99.3.WILL CONTINUE TO MONITOR.
[2018-08-26 04:00] VITALS: BP 90/50
--- NOTE | 2018-08-26 05:30 | NUR ---
Patient Update Second dose of Tylenol given. Latest temp 98.1 at 0530 . Pt is alert/oriented x4 & easily arousable. MD to see patient in AM, as reported per .
[2018-08-26] MEDS: NICOTINE POLACRILEX 4 MG GUM-PK OF TEN BC PRN ×6 (05:43→20:26)
--- NOTE | 2018-08-26 05:45 | NUR ---
PRN NICOTINE GUM PRN Nicotine gum was given as ordered for nicotine craving per Pt request.
--- NOTE | 2018-08-26 07:40 | NUR ---
END OF SHIFT Pt is a 22 y/o female admitted for Benzo and Opioid withdrawal; continues on Subutex and Valium taper and is tolerating well.Last CIWA 10,COWS 10 at 0400. Pt has been in bed ,all night ,resting with eyes closed, responsive upon approach, presented with anxiety, restlessness, hand tremors, nausea, body aches, nicotine craving and intermittent chills / sweats. Pt received PRN Nicotine gum x 2 and Tylenol x2 during the shift,in addition of routine medications. Pt had elevated temp in the beginning of shift ,remained elevated even after being medicated with Tylenol,MD was notified with new orders noted and carried out.MD made aware of abnormal labs ;will see Pt this morning,last temp was 98.1.Pt slept intermittently for 10 hours,fluid intake was 1710 ml,voided x 3,had b/m x 1.All safety measures in place, bed locked in low position,call light is within reach.Pt encouraged to verbalize needs and concerns. Will continue to monitor for safety.
[2018-08-26 08:00] VITALS: BP 89/55
--- NOTE | 2018-08-26 08:17 | NUR ---
START OF SHIFT: Received Pt A/o X 4. She presents with blunted affect and congruent mood. Poor eye contact noted. She reports nausea,sweats,chills ,fatigue,weakness and body aches. She continue on Subutex/Valium taper to manage s/s of w/d. COWS 7 CIWA 8. PRN Zofran given to assist with nausea. Encouraged group attendance to improve coping skills and prevent relapse. Encouraged increased fluids to facilitate detox process. Will continue to monitor and offer support.
[2018-08-26] MEDS: METOPROLOL TARTRATE 25 MG TABLET PO SCH ×2 (09:00→20:27)
[2018-08-26] MEDS: NICOTINE 21 MG/24HR PATCH TD SCH (09:00)
[2018-08-26] MEDS: BUPRENORPHINE HCL 2 MG TAB.SUBL SL SCH ×3 (09:01→20:27)
[2018-08-26] MEDS: MULTIVITAMINS,THERAPEUTIC TABLET PO SCH (09:01)
[2018-08-26] MEDS: ONDANSETRON ODT 4 MG TAB.RAPDIS SL PRN ×3 (09:01→20:33)
[2018-08-26] MEDS: DIAZEPAM 5 MG TABLET PO SCH ×2 (09:01→20:25)
[2018-08-26] MEDS: GABAPENTIN 300 MG CAPSULE PO SCH ×3 (09:02→20:26)
--- NOTE | 2018-08-26 09:17 | NUR ---
PRN Zofran effective. Pt states she has no nausea at this time.
[2018-08-26] MEDS: IBUPROFEN 600 MG TABLET PO PRN (11:52)
--- NOTE | 2018-08-26 11:55 | NUR ---
PRN Motrin 600 mg PO given for H/A 6/10 on pain scale. WIll monitor effectiveness of PRN.
[2018-08-26 12:00] VITALS: BP 118/71
--- NOTE | 2018-08-26 12:55 | NUR ---
PRN Motrin effective. She denies H/A at this time.
[2018-08-26 16:00] VITALS: BP 98/60
--- NOTE | 2018-08-26 17:11 | NUR ---
Rapid Strep AB and throat culture collected as ordered and sen to lab. She remains afebrile.
--- NOTE | 2018-08-26 18:26 | NUR ---
COWS 10 CIWA 10 She reports nausea,sweats,chills ,fatigue,weakness and body aches. Addendum: 08/26/18 at 1827 by WILLIAM MCCORD RN The COWS and CIWA score are from Noon.
--- NOTE | 2018-08-26 18:59 | NUR ---
END OF SHIFT: Pt continues on Subutex/Valium taper to manage s/s of w/d which include anxiety,nausea,body aches chills sweats and body aches. COWS 10 CIWA 10. She was given Zofran PRN X 2 for nausea and Motrin for H/A . PRNS were effective. She also received Nicotine gum. Strep AB and throat culture collected. Will pass shift report to oncoming night nurse.
--- NOTE | 2018-08-26 19:30 | NUR ---
START OF SHIFT Pt is a 22 y/o female admitted for Benzo and Opioid withdrawal; continues on Subutex and Valium taper and is tolerating well.Last CIWA 10,COWS 10. Pt received in bed ,resting with eyes closed, responsive upon approach, presented with anxiety, restlessness, nausea, body aches, nicotine craving and intermittent chills / sweats. Pt received PRN Nicotine gum, Zofran x2 and Motrin per day shift and were effective.Throat culture was done per day shift.No c/o pain or discomfort noted. Temp is 98.4. All safety measures in place, bed locked in low position,call light is within reach.Pt encouraged to verbalize needs and concerns. Will continue to monitor for safety.
[2018-08-26 20:00] VITALS: BP 104/66
--- NOTE | 2018-08-26 20:00 | NUR ---
COWS 8 CIWA 8. Pt reports nausea,sweats,chills ,general fatigue,weakness and body aches.HS medications are soon due.
[2018-08-26] MEDS: TRAZODONE 100 MG TABLET PO SCH (20:26)
[2018-08-26] MEDS: risperiDONE 1 MG TABLET PO SCH (20:27)
--- NOTE | 2018-08-26 20:33 | NUR ---
PRN ZOFRAN given for c/o nausea; no vomiting noted.
--- NOTE | 2018-08-26 21:33 | NUR ---
ZOFRAN is effective; nausea relieved.
[2018-08-27] VITALS: BP 92/54
--- NOTE | 2018-08-27 | NUR ---
COWS/CIWA DEFERRED. Pt is calm and resting in bed with eyes closed,breathing is even and non labored,no s/s of distress noted,will continue to monitor.
--- NOTE | 2018-08-27 04:00 | NUR ---
COWS/CIWA DEFERRED. Pt remains calm and resting in bed with eyes closed,breathing is even and non labored,no s/s of distress noted,v/s refused ,will continue to monitor.
--- NOTE | 2018-08-27 06:50 | NUR ---
END OF SHIFT Pt is a 22 y/o female admitted for Benzo and Opioid withdrawal; continues on Subutex and Valium taper and is tolerating well.Last CIWA 8,COWS 8. Pt has been in bed ,all night ,resting with eyes closed, responsive upon approach. Pt received PRN Nicotine gum and Zofran during the shift, in addition of routine medications.Pt slept for 9 hours,fluid intake was 855 ml,voided x 2, no b/m reported.Group A Strep Screen result is Negative.All safety measures in place, bed locked in low position,call light is within reach. Will continue to monitor for safety.
--- NOTE | 2018-08-27 07:30 | NUR ---
Start of Shift Solar Manager received report on 22 year old female admitted to [facility] on 08/22/18 for medical management of Benzodiazepine and Opiate withdrawals. Pt endorses allergies to Sulfa and Naloxone, full code and regular diet. Pt endorses PMH to include Inappropriate Sinus Tachycardia and withdrawal related seizure in 2018. Endorses PPH of anxiety, depression, Bipolar and insomnia. Pt currently on 5 day Subutex and 5 day Valium taper. Last CIWA 8 and COWS 8, per NOC report. Pt had PRN Zofran(nausea0 administered, per NOC report. Solar Manager encounters pt in pts room with pt resting with eyes closed. Even and unlabored respirations noted. Bed in low position with wheels locked and side rails up x2. Will continue to monitor, support and encourage according to plan of care.
[2018-08-27] MEDS: ACETAMINOPHEN 325 MG TABLET PO PRN (07:44)
--- NOTE | 2018-08-27 07:46 | NUR ---
PRN Tylenol Pt's temp is 102.9. PRN Tylenol administered.
--- NOTE | 2018-08-27 07:59 | NUR ---
MD Communication notified of pt's vitals. B/P 91/47, HR 110, RR 18, O2 sat 94%, T 102.9. PRN Tylenol administered. placed order for chest x-ray. Addendum: 08/27/18 at 0802 by DIAZ BECK RN Also notified MD that pt reports sore throat and difficulty taking a deep breath. Addendum: 08/27/18 at 0811 by DIAZ BECK RN Pt is A&O and easily arousable.
[2018-08-27 08:00] VITALS: BP 91/47
--- NOTE | 2018-08-27 08:10 | NUR ---
Off Unit Pt is off unit for X-ray. Pt left unit via wheelchair with Bipin MARCIAL escorting.
--- NOTE | 2018-08-27 08:25 | NUR ---
On Unit Pt returned from X-ray, returned without incident. Will continue to monitor, support and encourage according to plan of care.
--- NOTE | 2018-08-27 08:30 | NUR ---
CIWA 11/COWS 12 Pt is anxious, and restless. Pt is diaphoretic and tremulous. Pt with complaints of chills and sweats. Will continue to monitor, support and encourage according to plan of care.
[2018-08-27 08:37] LABS: BASOPHILS % (AUTO) 0.2 % (0.0-2.0); EOSINOPHILS # (AUTO) 0.5 K/uL (0.0-0.7); EOSINOPHILS % (AUTO) 4.8 % (0.0-7.0); HEMATOCRIT 40.1 % (31.2-41.9); HEMOGLOBIN 13.6 g/dL (10.9-14.3); LYMPHOCYTES # (AUTO) 0.9 K/uL (20.0-40.0); LYMPHOCYTES % (AUTO) 8.2 % (20.5-51.5); MEAN CORPUSCULAR HEMOGLOBIN 29.5 uug (24.7-32.8); MEAN CORPUSCULAR HGB CONC 34 g/dL (32.3-35.6); MEAN CORPUSCULAR VOLUME 86.7 fL (75.5-95.3); MONOCYTES # (AUTO) 0.8 K/uL (2.0-10.0); MONOCYTES % (AUTO) 6.7 % (0.0-11.0); NEUTROPHILS % (AUTO) 80.1 % (38.5-71.5); PLATELET COUNT (AUTO) 212 K/uL (179-408); RED BLOOD CELL COUNT(AUTO) 4.63 MIL/uL (3.63-4.92)
[2018-08-27 08:38] LABS: WHITE BLOOD COUNT (AUTO) 11.2 K/uL (3.8-11.8)
[2018-08-27] MEDS: NICOTINE POLACRILEX 4 MG GUM-PK OF TEN BC PRN ×3 (08:39→13:50)
--- NOTE | 2018-08-27 08:46 | NUR ---
Tylenol Re-Assessment Pt's temperature on recheck 99.5. Pt endorses feeling, "a bit better." Will continue to monitor, support and encourage according to plan of care.
[2018-08-27 08:50] VITALS: BP 100/55
[2018-08-27] MEDS ORDERED: BUPRENORPHINE HCL 2 MG TAB.SUBL SL SCH (09:00)
[2018-08-27] MEDS ORDERED: DIAZEPAM 5 MG TABLET PO SCH (09:00)
[2018-08-27] MEDS: NICOTINE 21 MG/24HR PATCH TD SCH (09:00)
[2018-08-27] MEDS: METOPROLOL TARTRATE 25 MG TABLET PO SCH (09:00)
--- NOTE | 2018-08-27 09:30 | NUR ---
Nursing Note/MD Communication Radiologist Dr. Fermin called to report chest x-ray results. Vital signs are B/P 100/55, HR 106, RR 18, O2 sat 92%, T 99.5. Dr. Melendez notified. Pt placed on TB precautions due to Radiologists report. PRN Oxygen therapy ordered. Titrate as needed to keep O2 sat >95%. Paymon and household appliances service technician notified of chest x-ray results. O2 sat 96% on Oxygen 2LPM. AFB Sputum sample ordered and collected. Pt is A&O and easy to arouse. She is noted to be pale and diaphoretic with c/o of body aches. Safety measures in place.
[2018-08-27] MEDS: MULTIVITAMINS,THERAPEUTIC TABLET PO SCH (11:47)
[2018-08-27] MEDS: GABAPENTIN 300 MG CAPSULE PO SCH (11:47)
[2018-08-27] MEDS ORDERED: METO25TA6 PO (12:25)
[2018-08-27] MEDS ORDERED: TRAZ-214 PO (12:25)
[2018-08-27] MEDS ORDERED: GABA-534 PO (12:25)
[2018-08-27] MEDS ORDERED: RISP1TAB7 PO (12:25)
[2018-08-27] MEDS ORDERED: NICO4GUM38 BC (12:25)
[2018-08-27 12:30] VITALS: BP 103/55
--- NOTE | 2018-08-27 12:30 | NUR ---
CIWA 8/COWS 8 Pt with moist skin, anxiety, restlessness and fien tremors. Pt complains of chills and myalgia. Will continue to monitor, support and encourage according to plan of care.
[2018-08-27] MEDS ORDERED: DIAZEPAM 5 MG TABLET PO PRN (13:45)
--- NOTE | 2018-08-27 14:45 | NUR ---
Discharge Assessment Pt is discharged per gurney and ambulance service. Pt is discharged due to possible infection of TB. During am VS, pt was diaphoretic, SOB and low O2 saturation at 92%with 2L nasal cannula applied to pt. Pt's saturation at 97%. Pt is A/O x4 and able to make her needs known. Pt complains all over myalgia and how and cold sweats. Chest X-ray ordered with radiologist reporting Pneumonia and possible TB. Infectious disease contacted credit underwriter and had credit underwriter obtain order for sputum culture, prior to pt being discharged and transferred to [place]. Culture collected. Pt is educated on TB, possible treatment and the care she is to receive. Pt is anxious and restless, and endorses being scared. Color Receiver educated pt on all discharge paperwork, importance of follow-up care and need for continued medication compliance. Color Receiver educated pt on name, route, dose, time and indication of all prescribed medications. Pt provided with all discharge paperwork, including MD notes, orders and recommendations. Pt provided discharge prescriptions. Pt is calm and cooperative on discharge, denies any further comments, questions or concerns. Pt denies any SI/HI or A/VH. Pt VS stable on discharge. Color Receiver called report to AIDAN Cole on 3rd floor at [facility], with no further comments, questions or concerns voiced. Color Receiver provided GABY Mascorro, cell phone number to RN, to be provided to CM at [place], for CM to coordinate pt's discharge. as [t had finished a Subutex and Valium taper today.
== END 2018-08-27 14:45 | disposition short-term general hospital (02) | DRG 895 ==
LOC: SRC 16:44
PROVIDERS: ADMIT Family Medicine Addiction Medicine; ATTEND Family Medicine Addiction Medicine
PROC: HZ2ZZZZ Detoxification Services for Substance Abuse Treatment (ICD-10-PCS; principal; 2018-08-22)
PROC: HZ31ZZZ Individual Counseling for Substance Abuse Treatment, Behavioral (ICD-10-PCS; 2018-08-24)
DX: F11.23 Opioid dependence with withdrawal (principal); J18.9 Pneumonia, unspecified organism; G40.509 Epileptic seizures related to external causes, not intractable, without status epilepticus; F41.1 Generalized anxiety disorder; R00.0 Tachycardia, unspecified; F31.9 Bipolar disorder, unspecified; F17.210 Nicotine dependence, cigarettes, uncomplicated; G47.00 Insomnia, unspecified; Z79.899 Other long term (current) drug therapy; Z81.8 Family history of other mental and behavioral disorders; Z81.3 Family history of other psychoactive substance abuse and dependence
CPT/HCPCS: 36415; 71046; 80307; 80361; 83735; 84443; 84703; 85025; 86403; 86580; 86592; 86705; 86803; 87070; 87086; 87340; 87806; G0480; Q0162

== ENCOUNTER 2018-10-06 15:28 | Inpatient (IN) | payer BC, OTHER ==
[~2018-10-06] VITALS: Ht 167.6 cm; Wt 54.4 kg
[~2018-10-06 15:28] MED LIST changes: -ACET-2605 PO; -BISM262O28 PO; -CLON0.1T PO; -CYCLOBENZAPRINE 10 MG; -FAMO1TAB29 PO; +FOLI1TAB16 PO; -IBUP-1957 PO; -LOPE2CAP40 PO; -MAGN400O6 PO; -MELA1TAB9 PO; +METO25TA6 PO; -METO50TA16 PO; +NICO4GUM38 BC; -ONDA4TAB8 PO; -RISP1TAB27 PO; +RISP1TAB7 PO
--- NOTE | 2018-10-06 17:11 | NUR ---
Intake assessment- Pt presents for medical supervised withdrawal of benzos and opiates. Pt alert and oriented x4, Pt denies being intoxicated. Pt speech soft and low. Pt is thin pale and disheveled. She avoids eye contact, c/o sensitivity to light. Pt is irritable and refuses to answer many intake questions. Vitals 123/73, HR 89, resp 18, sat 95%, temp 97.8. Pt reports allergy to Suboxone and Sulfa. She gets hives with Sulfa. She is able to take Subutex. Pt reports she overdosed on 1 gram of Fentanyl last night at midnight. She did not seek medical treatment.
--- NOTE | 2018-10-06 17:45 | NUR ---
Admission Note 22y/o female admitted for medically supervised withdrawal of benzos, and opiate. She arrived on the unit at 1721. Pt reports allergy to Suboxone, but Subutex is OK to take. Allergy to Sulfa, she gets hives. Pt requests FULL CODE. Pt smokes 1 pack per day. Height 56, weight 120#. Pulse palpable and regular, resp even and unlabored. Lung sounds clear. Bowel sounds active X4 quadrants. Skin is not intact, she has acnes and pick mayela scabs on her back. 1. Klonopin 8-10mg daily for three weeks. Last took 5 mg at 2100 last night 10/05/18.She first started using Klonopin at 16 years old. 2. Valium 10-15 mg every other day for about three weeks. She has not taken this in 2-3 days. She first started using Valium when she was 16 years old. 3. Fentanyl 1.5 to 2 grams daily via snorting or smoking for the last three weeks. She last snorted 1 gram at midnight and overdosed. She started using Fentanyl when she was 22 years old. Pt reports her longest time sober was three years, [id number]. Pt reports she is not intoxicated. Pt c/o withdrawal symptoms now of generalized body aches, fatigue, headache, nausea, fine tremors. She is irritable, disheveled, avoids eye contact, speaks with soft, low voice. COWS 9 and CIWA 11. Pt states she has history of withdrawal induced seizures when she was 16 years old. She has had multiple black outs and overdoses r/t benzo and opiate use. Pt was last at [facility] in August 2018. Pt reports she relapsed 3 weeks ago. Pt states she wants to get sober I overdosed and almost last night. She cannot identify a trigger and refused to answer an further questions. She has been in treatment multiple times and cant recall details or how many times. Pt became irritable and refused to answer further questioning. Pt does report she is homeless. Explosive Technician is at [facility]. PCP is Dr. Eden or psychiatrist. He old psychiatrist Dr. Gayathri Mendez dropped her as a patient because she needs an health it specialist. Pt reports when she was 16 she had an involuntary admission to a psychiatric hospital (5150) for suicidal ideations and suicide attempt. She refused to give any other details about this admission. PMH sinus tach rhythm, bipolar, anxiety, and depression. Her daily medications are Risperdal 0.5 mg QAM, 3 mg QHS. Gabapentin 800 mg TID. Trazodone 100-200mg QHS. Metropolol 25 mg BID. Pt reports his typical withdrawal symptoms include tremors, moderate anxiety, fatigue, nausea, vomiting, head ache, seizures, sweats/chills, and restlessness. The longest time he was sober was 9 months. Oriented Pt to room and floor. Body check performed. UDS obtained. Educated Pt about plan of care including detox, group therapy, individual therapy and discharge planning. Encouraged Pt to participate in group therapies to identify positive coping skills to maintain sobriety. Fall and seizures precautions, Safety measures in place, bed locked in low position, side rails up x2 and passed, and call light within reach. Will monitor for withdrawal symptoms. Addendum: 10/06/18 at 1900 by Roseanne Everett RN Longest time sober was 3 years [id number]
[2018-10-06] MEDS ORDERED: MAG HYDROX/AL HYDROX/SIMETH 30 ML LIQUID UDC PO PRN (18:15)
[2018-10-06] MEDS ORDERED: IBUPROFEN 600 MG TABLET PO PRN (18:15)
[2018-10-06] MEDS ORDERED: ACETAMINOPHEN 325 MG TABLET PO PRN (18:15)
[2018-10-06] MEDS ORDERED: LOPERAMIDE HCL 2 MG CAPSULE PO PRN ×2 (18:15)
[2018-10-06] MEDS ORDERED: LORAZEPAM 2 MG/1 ML VIAL IM PRN (18:15)
[2018-10-06] MEDS ORDERED: DIAZEPAM 10 MG TABLET PO PRN (18:15)
[2018-10-06] MEDS ORDERED: MIRALAX 17 GM POWD.PACK PO PRN (18:15)
[2018-10-06] MEDS ORDERED: SRC OPIOID WITHDRAWAL ADMITTING PROTOCOL XX PRN (18:15)
[2018-10-06] MEDS ORDERED: DIAZEPAM 5 MG TABLET PO PRN (18:15)
[2018-10-06] MEDS ORDERED: HYDROXYZINE PAMOATE 25 MG CAPSULE PO PRN (18:15)
[2018-10-06] MEDS ORDERED: SRC BENZO WITHDRAWAL ADMITTING PROTOCOL XX PRN (18:15)
[2018-10-06] MEDS ORDERED: MAGNESIUM HYDROXIDE 30 ML LIQUID UDC PO PRN (18:15)
[2018-10-06] MEDS ORDERED: diphenhydrAMINE 50 MG CAPSULE PO PRN (18:15)
[2018-10-06] MEDS ORDERED: CLONIDINE HCL 0.1 MG TABLET PO PRN (18:15)
[2018-10-06] MEDS ORDERED: ONDANSETRON 4 MG/2 ML VIAL IM PRN (18:15)
--- NOTE | 2018-10-06 18:53 | NUR ---
End of shift Pt laying in bed asleep. MRSA swab collected. Pt declined dinner. Fall and seizures precautions, Safety measures in place, bed locked in low position, side rails up x2 and passed, and call light within reach. Will monitor for withdrawal symptoms. Endorsed to PM shift.
[2018-10-06 19:09] LABS: *URINE HCG, QUAL NEGATIVE (NEGATIVE)
[2018-10-06 19:15] LABS: *AMPHETAMINE, URINE POSITIVE (NEGATIVE); *BARBITURATE, URINE NEGATIVE (NEGATIVE); *CANNABINOID, URINE NEGATIVE (NEGATIVE); *COCCAINE, URINE NEGATIVE (NEGATIVE); *OPIATE, URINE POSITIVE (NEGATIVE); *PHENCYCLIDINE SCREEN,URINE NEGATIVE (NEGATIVE)
--- NOTE | 2018-10-06 19:30 | NUR ---
Start of shift note Received report from day shift nurse. Patient is a 22 year old female admitted for Benzodiazepine and Opiate withdrawal. Patient is on PRN Valium and Subutex. Patient with PMH of Sinus tachycardia. She is currently on Metoprolol. MRSA done. Last COWS 9 and CIWA 11. Patient in the room resting at this time. Patient was irritable . She states to come back later because she wants to sleep more. Safety measures in place. Will continue to monitor.
[2018-10-06 20:00] VITALS: BP 103/60
--- NOTE | 2018-10-06 20:00 | NUR ---
Patient positive for Methamphetamine Patient states she did not take meth intentionally. She states that probably it's in the drugs . "I don't take meth".
[2018-10-06] MEDS: DIAZEPAM 10 MG TABLET PO PRN (20:45)
[2018-10-06] MEDS: ONDANSETRON ODT 4 MG TAB.RAPDIS SL PRN (20:46)
[2018-10-06] MEDS: BUPRENORPHINE HCL 2 MG TAB.SUBL SL PRN (20:46)
--- NOTE | 2018-10-06 20:46 | NUR ---
PRN Subutex SL, Valium 10 mg and Zofran SL administration Patient reports increased anxiety, restlessness, irritability, sweating , stuffy nose, abdominal cramping, nauseated, pin and needles sensation both arms and legs. COWS 13 and CIWA 13 upon assessment
--- NOTE | 2018-10-06 21:16 | NUR ---
PRN Subutex and Zofran SL re-assessment Patient states Subutex and Zofran are helpful and effective. Patient is still anxious and but feels much better. Nausea ceased just abdominal cramping. COWS 10 upon assessment
[2018-10-06 21:35] LABS: BASOPHILS % (AUTO) 0.5 % (0.0-2.0); EOSINOPHILS # (AUTO) 0.2 K/uL (0.0-0.7); EOSINOPHILS % (AUTO) 3.4 % (0.0-7.0); HEMATOCRIT 40.8 % (31.2-41.9); HEMOGLOBIN 14.1 g/dL (10.9-14.3); LYMPHOCYTES # (AUTO) 1.8 K/uL (20.0-40.0); LYMPHOCYTES % (AUTO) 30.9 % (20.5-51.5); MEAN CORPUSCULAR HEMOGLOBIN 30.2 uug (24.7-32.8); MEAN CORPUSCULAR HGB CONC 35 g/dL (32.3-35.6); MONOCYTES # (AUTO) 0.5 K/uL (2.0-10.0); MONOCYTES % (AUTO) 8.4 % (0.0-11.0); NEUTROPHILS # (AUTO) 3.3 K/uL (1.8-8.9); NEUTROPHILS % (AUTO) 56.8 % (38.5-71.5); PLATELET COUNT (AUTO) 214 K/uL (179-408); RED BLOOD CELL COUNT(AUTO) 4.69 MIL/uL (3.63-4.92); WHITE BLOOD COUNT (AUTO) 5.9 K/uL (3.8-11.8)
[2018-10-06 21:38] LABS: ETHANOL < 3 MG/DL (0-0)
--- NOTE | 2018-10-06 21:46 | NUR ---
PRN Valium re-assessment Patient states Valium helpful and effective. CIWA 10 at this time. Patient states she's till anxious but feels much better.
[2018-10-06 21:47] LABS: ALANINE AMINOTRANSFERASE 28 U/L (14-59); ALKALINE PHOSPHATASE 50 U/L (50-136); ASPARTATE AMINOTRANSFERASE 43 U/L (15-37); BILIRUBIN,TOTAL 0.8 mg/dL (0.2-1.0); CARBON DIOXIDE 35 mmol/L (21-32); CHLORIDE 98 mmol/L (98-107); CREATININE 0.8 mg/dL (0.6-1.3); GLUCOSE 128 mg/dL (74-106); MAGNESIUM 1.6 mg/dL (1.8-2.4); POTASSIUM 3.5 mmol/L (3.5-5.1); UREA NITROGEN, BLOOD 4 mg/dL (7-18)
[2018-10-07] VITALS: BP 128/78
--- NOTE | 2018-10-07 | NUR ---
CIWA and COWS deferred Patient lying in bed with eyes closed. Respiration even and unlabored. Will continue to monitor
[2018-10-07 04:00] VITALS: BP 125/80
--- NOTE | 2018-10-07 04:00 | NUR ---
CIWA and COWS deferred Patient lying in bed with eyes closed. Respiration even and unlabored. Will continue to monitor
--- NOTE | 2018-10-07 07:19 | NUR ---
End of shift note Patient was admitted for Benzodiazepine and Opiate dependence. Patient was placed on PRN Subutex and Valium. Patient reported anxiety, restlessness, irritability, sweating , stuffy nose, abdominal cramping, nauseated, pin and needles sensation both arms and legs. COWS 13 and CIWA 13 beginning of shift. Patient was given PRN Subutex , Valium and Zofran SL given at 2044. Patient's COWS and CIWA went down to COWS 10 and CIWA 10. Medications are effective. Safety measures in place. Will continue to monitor. Slept 7 hours. Fluid intake 1,355 ml. Voided x 2. No BM. Last COWS 10 and CIWA 10.
--- NOTE | 2018-10-07 07:30 | NUR ---
START OF SHIFT Endorse rcvd from ongoing nurse, client is in bed, she appears asleep, easy to awake, RR 16, even, non-labored. Client is lying on her R side, she appears disheveled, dry/pale lips, and clammy arms. PRN Valium 10mg PO for CIWA 13, Subutex 4mg SL for COWS 13, Zofran 4mg SL for intermittent nausea. Bedside noted with several open candy wraps and bottle of water. Seizure precautions. Side rails x 2 up/padded. Bed in lowest/locked position. Call light within reach. Will continue to monitor.
[2018-10-07 08:55] VITALS: BP 109/68
[2018-10-07] MEDS ORDERED: TUBERCULIN,PURIF.PROT.DERIV. 5 TU/0.1 ML TEST ID ONE (09:00)
[2018-10-07] MEDS ORDERED: MAGNESIUM OXIDE 400 MG TABLET PO ONE (09:00)
[2018-10-07] MEDS: ONDANSETRON ODT 4 MG TAB.RAPDIS SL PRN (09:38)
--- NOTE | 2018-10-07 09:38 | NUR ---
CIWA 15 / COWS 16 PRN Valium 10mg Po for anxiety, agitation, sweats, nausea, tremors, difficulty concentrating, sensitivity to light, and difficulty thinking clearly. PRN Subutex 4mg SL for dilated pupils, generalized body aches, anxiety/agitation, nasal congestion,and yawning. PRN Zofran 4mg SL for intermittent nausea. Ria linda and saltine crackers offered, client declined at this time. Call light within reach.
[2018-10-07] MEDS: BUPRENORPHINE HCL 2 MG TAB.SUBL SL PRN (09:39)
[2018-10-07] MEDS: DIAZEPAM 10 MG TABLET PO PRN (09:39)
[2018-10-07] MEDS: MULTIVITAMINS,THERAPEUTIC TABLET PO SCH (09:39)
--- NOTE | 2018-10-07 09:39 | NUR ---
PPD Test administered to L forearm.
--- NOTE | 2018-10-07 10:08 | NUR ---
Reassess PRN Subutex 4mg and Zofran 4mg, COWS 13 Client continues to presents with dilated pupils, generalized body aches, slight relief from anxiety/agitation, nasal congestion, yawning and relief from nausea.
--- NOTE | 2018-10-07 10:38 | NUR ---
Reassess PRN Valium 10mg, client reports no change in her withdrawal symptoms, she continues to feel anxious, agitated, sweaty, with tremors, difficulty concentrating, sensitivity to light, and difficulty thinking clearly, CIWA 12.
[2018-10-07] MEDS ORDERED: 5 DAY TAPER BUPRENORPHINE -SERENITY PROTOCOL SL PRN (11:15)
[2018-10-07] MEDS ORDERED: 5 DAY TAPER VALIUM-SERENITY PROTOCOL PO PRN (11:15)
[2018-10-07 12:27] VITALS: BP 112/62
[2018-10-07] MEDS: DIAZEPAM 10 MG TABLET PO SCH ×2 (12:37→21:45)
[2018-10-07] MEDS: BUPRENORPHINE HCL 2 MG TAB.SUBL SL SCH ×3 (12:37→21:48)
--- NOTE | 2018-10-07 12:39 | NUR ---
CIWA 16 / COWS 16 Client is in bed, in a position, she is shivering, clammy skin, flushed facial skin, gross tremors, avoidant gaze, anxiety, agitation, restlessness, nausea, and difficulty concentrating. Client reports in a pressured voice anxiety, irritability, depression, mild sensitivity to light, poor appetite, sweats, cold/chills, and difficulty thinking clearly. Schedule Valium 10mg PO, Subutex 4mg SL administered. Encourage client to increase PO fluid as tolerated to facilitate detox. Call light within reach.
[2018-10-07] MEDS: METOPROLOL TARTRATE 25 MG TABLET PO SCH ×2 (12:49→21:46)
[2018-10-07] MEDS: GABAPENTIN 300 MG CAPSULE PO SCH ×2 (12:49→21:46)
--- NOTE | 2018-10-07 12:56 | NUR ---
Therapist prompted client to attend all daily group therapy sessions.
[2018-10-07] MEDS: risperiDONE 0.5 MG TABLET PO SCH (13:48)
[2018-10-07 16:55] VITALS: BP 101/63
--- NOTE | 2018-10-07 17:11 | NUR ---
CIWA 16 / COWS 16 Client continues to present with agitation, anhedonia, anxiety, poor appetite, cold/chills, clammy skin, confusion, depression, difficulty concentrating, emotional volatility, enlarged pupils, fatigue, fine tremors, flushed facial skin, generalized body aches, nausea, and fatigue. Schedule Subutex 4mg SL administered. Call light within reach.
--- NOTE | 2018-10-07 19:22 | NUR ---
END OF SHIFT Endorse client to incoming nurse, client is in room, a/o x 4, fully ambulatory, client continues to present with agitation, anhedonia, anxiety, poor appetite, cold/chills, clammy skin, confusion, depression, difficulty concentrating, emotional volatility, enlarged pupils, fatigue, fine tremors, flushed facial skin, generalized body aches, nausea, and fatigue. Client is on of 5 day Valium / 5 day Subutex. Last CIWA 16 / COWS 16 @ 1700. Client is not compliant with group therapy d/t above withdrawal syptoms. Adequate PO fluid intake 1000mL, void x 2. Consumes 25-50% of meals. Seizure precautions. Bed in lowest/locked position. Call light within reach.
--- NOTE | 2018-10-07 19:30 | NUR ---
Start of shift note Received report from day shift nurse. Patient is a 22 year old female admitted for Benzodiazepine and Opiate withdrawal. Patent is on 1st day of her 5 day Subutex and 5 day Valium taper. Patient was given PRN Zofran , Valium and Subutex before taper was started. PPD given. Last COWS 16 and CIWA 16. Patient in the room, resting. Patient reports anxiety, restlessness, diaphoretic, chills , anhedonia, fine tremors and fatigue. Patient present with flat affect, eye avoidant and disheveled. Safety measures in place. Will continue to monitor.
[2018-10-07 20:00] VITALS: BP 105/61
[2018-10-07] MEDS: TRAZODONE 100 MG TABLET PO SCH (21:00)
[2018-10-07] MEDS: risperiDONE 1 MG TABLET PO SCH (21:47)
--- NOTE | 2018-10-07 21:47 | NUR ---
Refused Trazadone Patient refused to take her Trazadone. Per patient she doesn't need it today. Explained risks/benefits.
[2018-10-08] VITALS: BP 95/57
--- NOTE | 2018-10-08 | NUR ---
COWS and CIWA deferred Patient lying in bed with eyes closed. Respiration even and unlabored. Will continue to monitor.
[2018-10-08 04:00] VITALS: BP 99/62
--- NOTE | 2018-10-08 04:00 | NUR ---
COWS and CIWA deferred Patient lying in bed with eyes closed. Respiration even and unlabored. Will continue to monitor.
--- NOTE | 2018-10-08 07:26 | NUR ---
End of shift note Monitored patient throughout shift. Patient observed increased fatigue. Patient in her room most of the shift. Patient reported anxiety, restlessness, diaphoretic, chills , fine tremors and fatigue. Patient presented with flat affect, eye avoidant and disheveled. Scheduled medication and taper given as ordered, tolerated well. Encouraged fluids. Patient did not require PRN medication . Patient refused to take her Trazadone. Safety measures in place. Will continue to monitor. Patient slept 10 hours. Fluid intake 600 ml. Voided x 1. BM. Last COWS 13 and CIWA 13.
--- NOTE | 2018-10-08 07:28 | NUR ---
QUYEN and CIWA deferred Patient lying in bed with eyes closed. Respiration even and unlabored. Will continue to monitor. Addendum: 10/08/18 at 0730 by MIGUEL WHITESIDE LVN error charting
--- NOTE | 2018-10-08 07:38 | NUR ---
START OF SHIFT Pt is a 22 yr old female, A&Ox4. Pt was admitted on 10/06/18 for Benzo/Opiate withdrawal and is on 5 day Valium taper and 5 day Subutex taper. Received report from second shift supervisor nurse. No PRN's were given during the night. Pt slept for 10hrs. Last COWS score was 13 and CIWA score was 13. Pt is observed with facial sweats and fine tremors on BUE. Pt states, "I'm just really tired". Pt's room is noted disheveled with open food wrappers on bedside table and on the floor. Pt was encouraged increase fluid intake. Will continue to monitor.
[2018-10-08 08:07] LABS: HEPATITIS B SURFACE AG Negative (Negative)
[2018-10-08 08:15] VITALS: BP 94/50
[2018-10-08] MEDS: METOPROLOL TARTRATE 25 MG TABLET PO SCH ×2 (09:00→20:15)
[2018-10-08 09:18] LABS: BILIRUBIN,TOTAL 0.5 mg/dL (0.2-1.0); CREATININE 0.7 mg/dL (0.6-1.3); MAGNESIUM 1.8 mg/dL (1.8-2.4); POTASSIUM 3.6 mmol/L (3.5-5.1); TOTAL PROTEIN, SERUM 6.8 g/dL (6.4-8.2)
[2018-10-08] MEDS: GABAPENTIN 300 MG CAPSULE PO SCH ×3 (09:21→20:15)
[2018-10-08] MEDS: MULTIVITAMINS,THERAPEUTIC TABLET PO SCH (09:21)
[2018-10-08] MEDS: DIAZEPAM 5 MG TABLET PO SCH ×4 (09:21→20:14)
[2018-10-08] MEDS: BUPRENORPHINE HCL 2 MG TAB.SUBL SL SCH ×3 (09:22→20:16)
[2018-10-08] MEDS: risperiDONE 0.5 MG TABLET PO SCH (09:22)
--- NOTE | 2018-10-08 09:25 | NUR ---
MEDICATION REFUSED Pt refused to take Metoprolol Tartrate 25mg as scheduled at 0900. Pt states she does not need the medication because her BP is low and HR is low. Pt's BP was 94/50 and HR is 67. Will continue to monitor.
--- NOTE | 2018-10-08 10:15 | NUR ---
Therapist prompted client to attend daily group therapy sessions. Client stated she is too fatigued at this time.
[2018-10-08 12:00] VITALS: BP 109/63
[2018-10-08] MEDS: METHOCARBAMOL 750 MG TABLET PO PRN (14:35)
--- NOTE | 2018-10-08 14:35 | NUR ---
PRN RE-ASSESSMENT Pt was c/o generalized body aches 02/24. Robaxin 750mg PO PRN was given as ordered. Encouraged increase fluid intake. Will continue to monitor. Addendum: 10/08/18 at 1741 by ANDREAS IRAHETAN CORRECTION PRN GIVEN
--- NOTE | 2018-10-08 15:35 | NUR ---
PRN RE-ASSESSMENT Robaxin PRN was effective. Pt states pain level subside to 3/10. Will continue to monitor.
[2018-10-08 16:00] VITALS: BP 101/55
[2018-10-08] MEDS: NICOTINE POLACRILEX 4 MG GUM-PK OF TEN BC PRN (17:13)
--- NOTE | 2018-10-08 17:13 | NUR ---
PRN GIVEN Pt requested for Nicotine Gum. Nicotine Gum 4mg PRN was given for smoking cessation.
--- NOTE | 2018-10-08 19:10 | NUR ---
END OF SHIFT Pt is a 22 yr old female, AA&Ox4. Pt was admitted on 10/06/18 for Benzo/Opiate withdrawal and is on 5 day Subutex and 5 day Valium taper as ordered. Pt has been observed with increase fatigue and remained in bed throughout the day. Pt states, I just feel so tired and week, I just want to sleep. Pt was observed with facial sweats, fine tremors on BUE and flat affect. Pt was also c/o generalized body aches. Pt was given Robaxin PRN for pain mgt and Nicotine Gum for smoking cessation. Medication was effective. Pt was encouraged increase fluid intake. Last COWS score was 12 and CIWA score was 12. Endorsed to night warehouse manager nurse to continue with care.
--- NOTE | 2018-10-08 19:30 | NUR ---
Start of shift note Received report from day shift nurse. Patient is a 22 year old female admitted for Benzodiazepine and Opiate withdrawal. Patient 2nd day of her 5 day Subutex and 5 day Valium taper. Patient was given PRN Robaxin and Nicotine gum. Last COWS 12 and CIWA 12. Patient lying in bed with eyes closed. Patient woke up upon entering the door. Patient present with flat affect, depressed mood, sad and disheveled. Patient reports anxiety, restlessness, sweating, generalized body aches, stuffy nose, abdominal cramping , yawning and sweating. Encourage fluids. Safety measures in place. Will continue to monitor.
[2018-10-08 20:00] VITALS: BP 102/60
[2018-10-08] MEDS: TRAZODONE 100 MG TABLET PO SCH (20:14)
[2018-10-08] MEDS: risperiDONE 1 MG TABLET PO SCH (20:15)
--- NOTE | 2018-10-09 | NUR ---
COWS and CIWA deferred Patient lying in bed with eyes closed. Respiration even and unlabored. Will continue to monitor
--- NOTE | 2018-10-09 04:00 | NUR ---
COWS and CIWA deferred Patient lying in bed with eyes closed. Respiration even and unlabored. Will continue to monitor
--- NOTE | 2018-10-09 07:12 | NUR ---
End of shift note Monitored patient throughout shift. Patient presented with flat affect, depressed mood, sad and disheveled. Patient reported anxiety, restlessness, sweating, generalized body aches, stuffy nose, abdominal cramping , yawning and sweating. Patient withdrawn and emotional. Patient stays in the room most of the shift. Relaxation technique provided and positive encouragement given. Encouraged fluids. Safety measures in place. Will continue to monitor. Patient slept 11 hours. Fluid intake 120 ml. Voided x 1. No BM. Last COWS 12 and CIWA 12.
--- NOTE | 2018-10-09 07:50 | NUR ---
START OF SHIFT Pt is a 22 yr old female, A&Ox4. Pt was admitted on 10/06/18 for Benzo/Opiate withdrawal and is on 5 day Valium taper and 5 day Subutex taper. Received report from mold shifter nurse. No PRN's were given during the night. Pt slept for 11hrs. Last COWS score was 12 and CIWA score was 12. Pt is in bed sleeping with respirations even and unlabored. Skin is intact, warm and clammy to touch. Safety precautions observed. Call light is within reach. Will continue to monitor.
[2018-10-09 08:00] VITALS: BP 96/53
[2018-10-09] MEDS ORDERED: BUPRENORPHINE HCL 2 MG TAB.SUBL SL SCH (09:00)
--- NOTE | 2018-10-09 09:00 | NUR ---
COWS AND CIWA ASSESSMENT DEFERRED Pt remains in bed sleeping with respirations even and unlabored. RR is 16. Will continue to monitor.
[2018-10-09] MEDS: MULTIVITAMINS,THERAPEUTIC TABLET PO SCH (10:55)
[2018-10-09] MEDS: GABAPENTIN 300 MG CAPSULE PO SCH ×3 (10:55→20:14)
[2018-10-09] MEDS: METOPROLOL TARTRATE 25 MG TABLET PO SCH ×2 (10:55→20:14)
[2018-10-09] MEDS: risperiDONE 0.5 MG TABLET PO SCH (10:55)
[2018-10-09] MEDS: DIAZEPAM 5 MG TABLET PO SCH ×3 (10:55→20:15)
--- NOTE | 2018-10-09 11:01 | NUR ---
MEDICATION WAS HELD Pt remains in bed sleeping with respirations even and unlabored. Pt Escort attempted multiple time to wake up pt but she would refuse and cover her head with the blanket. All medication scheduled at 0900 including Valium 5mg PO and Subutex 2mg SL was held. was made aware. Will continue to f/u.
[2018-10-09 12:00] VITALS: BP 98/48
--- NOTE | 2018-10-09 12:14 | NUR ---
RT prompted pt to attend and actively participate in rec groups.
--- NOTE | 2018-10-09 12:20 | NUR ---
NSG NOTE Pt is awake alert and oriented x4. Pt is stating, "I feel much better today, I don't feel like a walking zombie today". Pt is noted with fine tremors on BUE and flat affect. Pt is c/o anxiety but is able to cope with anxiety level. Pt was encouraged increase fluid intake. Will continue to monitor.
[2018-10-09] MEDS: METHOCARBAMOL 750 MG TABLET PO PRN ×2 (13:32→21:34)
--- NOTE | 2018-10-09 13:35 | NUR ---
PRN GIVEN Pt c/o generalized body aches. Robaxin 750mg PO PRN was given as ordered. Encouraged increase fluid intake. Will continue to monitor.
[2018-10-09] MEDS: BUPRENORPHINE HCL 2 MG TAB.SUBL SL SCH ×2 (14:28→20:17)
[2018-10-09] MEDS: NICOTINE POLACRILEX 4 MG GUM-PK OF TEN BC PRN ×3 (14:45→21:25)
[2018-10-09 16:00] VITALS: BP 105/66
--- NOTE | 2018-10-09 19:10 | NUR ---
END OF SHIFT Pt is a 22 yr old female, AA&Ox4, Pt was admitted on 10/06/18 for Benzo/Opiate withdrawal and is on 5 day Valium taper and 5 day Subutex taper as ordered. Pt has been observed with increase drowsiness and was in bed throughout the day. All 0900 medication was held due to pt was sleeping. While awake, pt was c/o increase anxiety, body aches, sweats and chills. Pt was observed with fine tremors on BUE. Pt was given Robaxin 750mg PO PRN and Nicotine Gum during the day. Medication was effective. Last COWS score was 11 and CIWA score was 14 at 1630. Pt was encouraged to attend group therapy. Endorsed to corporate director of pharmacy nurse to continue with care.
--- NOTE | 2018-10-09 19:30 | NUR ---
Received patient awake, alert, and oriented x4 sitting up in bed watching TV. Patient is a 22 year old female admitted for medically supervised detox from benzos and opiates with secondary diagnosis of bipolar disorder, anxiety, depression, ADHD, and sinus tachycardia with a history of SI. Per endorsement, patient is on the 3rd day of a 5 day Valium and Subutex taper. Patient has a sulfa and naloxone allergy. Per AM shift, the patient slept late into the afternoon and refused morning meds. Patient was given Robaxin and nicotine gum for muscle spasm pain and cravings. Last COWS score is 11 and CIWA score is 14. Upon assessment, patient was noted with anxiety, nausea, and muscle aches in her legs and arms at a 5 out of 10 and requests pain meds and antiemetic. Patient was seen sitting up in bed watching TV, speech is soft and garbled, she looks older than stated age, and appears disheveled. HOB and bilateral side rails raised. Call light is functional and within reach. Will continue to monitor.
[2018-10-09 20:00] VITALS: BP 109/68
[2018-10-09] MEDS: TRAZODONE 100 MG TABLET PO SCH (20:13)
[2018-10-09] MEDS: risperiDONE 1 MG TABLET PO SCH (20:15)
[2018-10-09] MEDS: ONDANSETRON ODT 4 MG TAB.RAPDIS SL PRN (20:17)
--- NOTE | 2018-10-09 20:17 | NUR ---
PRN MOTRIN AND ZOFRAN ADMINISTRATION Patient reported having muscle spasm pain to her legs and arms at a 5 out of 10 and nausea with no episodes of emesis noted or reported. PRN meds Zofran 4 mg and Motrin 600 mg given per MD orders and patient request. Will continue to monitor and reassess for effectiveness.
--- NOTE | 2018-10-09 21:17 | NUR ---
PRN MOTRIN AND ZOFRAN REASSESSMENT Patient reports having mild relief from muscle aching pain at a level of 3 out 10 which the patient states is not adequate. PRN med Motrin considered not effective. PRN Robaxin requested. Patient states that her nausea has ceased completely. PRN Zofran noted to be effective. Will continue to monitor.
--- NOTE | 2018-10-09 21:34 | NUR ---
PRN ROBAXIN ADMINISTRATION Patient reports having muscle aching and pain in her arms and legs at a 3 out of 10. PRN Robaxin given per MD orders and patient request. Will continue to monitor and reassess for effectiveness.
--- NOTE | 2018-10-09 22:34 | NUR ---
PRN ROBAXIN REASSESSMENT Patient is noted lying in bed with eyes closed and even, unlabored respirations. No s/s of pain or distress is noted at this time. PRN Robaxin noted to be effective.
--- NOTE | 2018-10-10 | NUR ---
VITAL SIGNS REFUSED Patient is noted lying in bed with eyes closed and even, unlabored respirations. Vital signs refused. All safety measures in place and call light within reach. Will continue to monitor.
--- NOTE | 2018-10-10 07:32 | NUR ---
Start of shift note; Received report from night nurse. Patient is a 22 year old female admitted on 10/06/18 for Benzodiazepine/ Opioid withdrawal. Patient is currently resting with eyes closed, respirations of of 18 noted. Patient was placed on a 5 day Valium and 5 day Subutex taper. Patient's last COWS score is 11 and last CIWA score is 12 per endorsement. Patient slept for 8 hours. Patient received PRN Robaxin, Motrin and Zofran. All safety measures secured. Will continue to monitor patient.
--- NOTE | 2018-10-10 07:33 | NUR ---
END OF SHIFT Patient is a 22 year old female admitted for medically supervised detox from benzos and opiates with secondary diagnosis of bipolar disorder, anxiety, depression, ADHD, and sinus tachycardia with a history of SI. During the shift, the patient reported having muscle spasm pain, nausea, and anxiety. PRN meds Motrin and Robaxin given for muscle pain and Zofran given for nausea and were effective. Patient was advised to increase participation in treatment program during the AM shift and increase physical activity. Last COWS score is 11 and CIWA is 12. HOB is flat and bilateral side rails raised. Call light within reach. Endorsed to oncoming AM nurse.
[2018-10-10 08:00] VITALS: BP 98/62
[2018-10-10] MEDS: METOPROLOL TARTRATE 25 MG TABLET PO SCH ×2 (09:00→20:21)
[2018-10-10] MEDS: GABAPENTIN 300 MG CAPSULE PO SCH ×3 (09:24→20:20)
[2018-10-10] MEDS: MULTIVITAMINS,THERAPEUTIC TABLET PO SCH (09:24)
[2018-10-10] MEDS: DIAZEPAM 5 MG TABLET PO SCH ×2 (09:25→20:20)
[2018-10-10] MEDS: risperiDONE 0.5 MG TABLET PO SCH (09:25)
[2018-10-10] MEDS: BUPRENORPHINE HCL 2 MG TAB.SUBL SL SCH ×3 (09:25→20:20)
--- NOTE | 2018-10-10 09:27 | NUR ---
Medication Refusal; Patient is AOx4, presented with a flat affect, complaining of muscle aches, chills, diaphoresis, stomach cramps, patient is avoidant to eye contact, appears anxious. Patient refused to take due medication Lopressor, educated patient regarding the importance of compliance to medication regime, patient verbalized understanding. Will continue to monitor patient.
[2018-10-10] MEDS: METHOCARBAMOL 750 MG TABLET PO PRN ×3 (09:37→20:20)
--- NOTE | 2018-10-10 09:37 | NUR ---
PRN medication; Patient is complaining of muscle aches. PRN Robaxin 750 mg PO given for muscle aches. Will continue to monitor patient.
--- NOTE | 2018-10-10 10:37 | NUR ---
Re-assessment; Patient is AOx4, patient verbalized improvement of muscle aches. PRN Robaxin noted to be effective.
[2018-10-10 12:00] VITALS: BP 100/67
[2018-10-10] MEDS: NICOTINE POLACRILEX 4 MG GUM-PK OF TEN BC PRN ×2 (13:36→20:20)
--- NOTE | 2018-10-10 13:37 | NUR ---
PRN medication; Patient is complaining of muscle aches, PRN Robaxin 750 mg PO given for muscle aches. Patient is also requesting for nicotine gum, nicotine gum given as ordered. Educated patient regarding the importance of not smoking to prevent nicotine toxicity, patient verbalized understanding.
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
--- NOTE | 2018-10-10 14:37 | NUR ---
Re-assessment; Patient verbalized improvement of muscle aches, PRN Robaxin noted to be effective.
[2018-10-10 16:00] VITALS: BP 126/74
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
--- NOTE | 2018-10-10 18:03 | NUR ---
End of shift note; Patient is AOX4, presented with anxiety, intermittent sweats, chills, stomach cramps, fatigue, muscle aches and generalized discomfort. Patient was placed on a 5 day Valium and 5 day Subutex tapers to help reduce withdrawal symptoms, patient is currently on her 4th day of taper. Patient's last COWS score is 12 and last CIWA score is 12 noted at 1600. Patient remained compliant with treatment plan and medication regime. Medications were effective in reducing withdrawal symptoms. Patient received PRN Robaxin and PRN Nicotine gum both noted to be effective. All safety measures secured. Met all patient's needs.
--- NOTE | 2018-10-10 19:15 | NUR ---
START OF SHIFT Patient is a 22-year-old female admitted on 10/06/18 for benzodiazepine and opiate withdrawal. Patient is currently on a 5-day Valium taper and a 5-day Subutex taper, tolerating well; today is day 4. Patients last COWS was 12 and last CIWA was 12 per endorsement. Patient received PRN Robaxin twice today for body aches, noted to be effective, and PRN Nicotine gum once. Upon assessment, patient is restless and anxious, complaining of generalized body aches. Patient also reports mild nausea, no emesis at this time. Patient requested, Can I have my meds at 8:00pm? Patient appears tired with dark circles under her eyes. Patient is disheveled and has a flat affect. Patient is on fall and seizure precautions with most recent seizure at age 16 related to benzo/opiate withdrawal per patient. Safety measures in place, side rails up x2, bed locked in low position, call light within reach. Will continue to monitor.
[2018-10-10 20:00] VITALS: BP 120/78
[2018-10-10] MEDS: TRAZODONE 100 MG TABLET PO SCH (20:20)
[2018-10-10] MEDS: ONDANSETRON ODT 4 MG TAB.RAPDIS SL PRN (20:20)
--- NOTE | 2018-10-10 20:20 | NUR ---
PRN ZOFRAN, ROBAXIN & NICOTINE GUM Patient reports nausea without emesis. Patient reports body aches 6/10 on pain scale, generalized. Patient also requests PRN Nicotine gum for smoking cessation. PRN Zofran 4mg given SL, PRN Robaxin 750mg given PO, and PRN Nicotine gum given PO; chewing instructions reviewed. Safety measures in place, side rails up x2, bed locked in low position, call light within reach. Will monitor for effectiveness.
[2018-10-10] MEDS: risperiDONE 1 MG TABLET PO SCH (20:28)
--- NOTE | 2018-10-10 20:50 | NUR ---
PRN ZOFRGENIE REASSESSMENT Patient reports that nausea has improved and would like something to eat from the kitchen. PRN Zofran noted to be effective. Safety measures in place, call light within reach. Will continue to monitor.
--- NOTE | 2018-10-10 21:20 | NUR ---
PRN ROBAXIN & NICOTINE GUM REASSESSMENT Patient reports generalized body aches have improved, 3/10, and she has reduced craving for cigarette smoking. PRN Robaxin and Nicotine gum noted to be effective. Safety measures in place, side rails up x2, bed locked in low position, call light within reach. Will continue to monitor.
--- NOTE | 2018-10-11 | NUR ---
VITALS REFUSED Patient refused midnight vitals; respirations even and unlabored at this time, 16/min. Safety measures in place, side rails up x2, bed locked in low position, call light within reach. Will continue to monitor.
--- NOTE | 2018-10-11 04:00 | NUR ---
VITALS REFUSED Patient refused vitals at this time; respirations even and unlabored, 16/min. Safety measures in place, side rails up x2, bed locked in low position, call light within reach. Will continue to monitor.
--- NOTE | 2018-10-11 07:08 | NUR ---
END OF SHIFT Patient is a 22-year-old female admitted on 10/06/18 for benzodiazepine and opiate withdrawal. Patient is currently on a 5-day Valium taper and a 5-day Subutex taper, tolerating well; today is the final day of taper. Patients last COWS was 15 and last CIWA was 16. Patient received PRN Robaxin, Zofran, and Nicotine gum; all noted to be effective. Patient slept for 8 hrs, total intake of 1599mL, void x 3, stool x 0. Patient is on fall and seizure precautions with most recent seizure at age 16 related to benzo/opiate withdrawal per patient. Safety measures in place, side rails up x2, bed locked in low position, call light within reach. Will endorse to day shift.
--- NOTE | 2018-10-11 07:15 | NUR ---
Start of shift note; Received report from night nurse. Patient is a 22 year old female admitted on 10/06/18 for Benzodiazepine/ Opioid withdrawal. Patient is currently resting with eyes closed, respirations of of 18 noted. Patient was placed on a 5 day Valium and 5 day Subutex taper. Patient's last COWS score is 15 and last CIWA score is 16 per endorsement. Patient slept for 8 hours. Patient received PRN Robaxin, Zofran and nicotine gum. All safety measures secured. Will continue to monitor patient.
[2018-10-11 08:00] VITALS: BP 98/65
[2018-10-11] MEDS: GABAPENTIN 300 MG CAPSULE PO SCH ×3 (08:27→20:13)
[2018-10-11] MEDS: risperiDONE 0.5 MG TABLET PO SCH (08:27)
[2018-10-11] MEDS: MULTIVITAMINS,THERAPEUTIC TABLET PO SCH (08:27)
[2018-10-11] MEDS: METOPROLOL TARTRATE 25 MG TABLET PO SCH ×2 (08:31→20:12)
[2018-10-11] MEDS: METHOCARBAMOL 750 MG TABLET PO PRN ×2 (08:35→16:34)
--- NOTE | 2018-10-11 08:37 | NUR ---
PRN medication; Patient is complaining of muscle aches and generalized discomfort. PRN Robaxin 750 mg PO given for muscle aches. Will continue to monitor patient for effectiveness of medication.
[2018-10-11] MEDS ORDERED: DIAZEPAM 5 MG TABLET PO SCH (09:00)
[2018-10-11] MEDS ORDERED: BUPRENORPHINE HCL 2 MG TAB.SUBL SL SCH (09:00)
--- NOTE | 2018-10-11 09:37 | NUR ---
Re-assessment; Patient reported improvement of muscle aches. PRN Robaxin noted to be effective.
[2018-10-11] MEDS: NICOTINE POLACRILEX 4 MG GUM-PK OF TEN BC PRN ×3 (11:02→20:19)
--- NOTE | 2018-10-11 11:02 | NUR ---
Nicotine gum: Patient requested nicotine gum for nicotine cravings. PRN Nicotine gum given at this time.
[2018-10-11 12:00] VITALS: BP 107/69
[2018-10-11] MEDS ORDERED: GABA800T11 PO (13:07)
[2018-10-11] MEDS ORDERED: RISP0.5T5 PO (13:10)
[2018-10-11] MEDS ORDERED: RISP1TAB7 PO (13:10)
[2018-10-11] MEDS ORDERED: METO25TA6 PO (13:10)
[2018-10-11] MEDS ORDERED: METH-406 PO (13:10)
[2018-10-11] MEDS ORDERED: TRAZ-214 PO (13:10)
[2018-10-11 16:00] VITALS: BP 116/81
--- NOTE | 2018-10-11 16:34 | NUR ---
PRN medication; Patient is complaining of muscle aches and generalized discomfort. PRN Robaxin 750 mg PO given for muscle aches.Patient also requested for Nicotine gum, given as ordered. Will continue to monitor patient for effectiveness of medication.
--- NOTE | 2018-10-11 17:34 | NUR ---
Re-assessment; Patient reported improvement of muscle aches, PRN medication noted to be effective.
--- NOTE | 2018-10-11 18:47 | NUR ---
End of shift note; Patient is AOX4, presented with anxiety, intermittent sweats, chills, stomach cramps, fatigue, muscle aches and generalized discomfort. Patient was placed on a 5 day Valium and 5 day Subutex tapers to help reduce withdrawal symptoms, patient is currently on her last day of taper. Patient's last COWS score is 11 and last CIWA score is 9 noted at 1600. Patient remained compliant with treatment plan and medication regime. Medications were effective in reducing withdrawal symptoms. Patient received PRN Robaxin x2 and PRN Nicotine gum x2 both noted to be effective. Patient is medically cleared for discharge tomorrow to be transferred to [facility]. All safety measures secured. Met all patient's needs.
--- NOTE | 2018-10-11 19:00 | NUR ---
Start of Shift Received 22 year old female patient admitted to [facility] 10/06/18 for medically supervised withdrawal from Benzodiazepines and Opiates. Pt completed 5 day Valium and 5 day Subutex taper, which she tolerated well. Last CIWA 11 @1600. Pt received PRN Robaxin 2 and Nicotine gum x 2 on day shift. Pt is participating in group at this time. Bed low, side rails up x 2, and call martinez in reach. Will continue to monitor.
[2018-10-11 20:00] VITALS: BP 116/71
[2018-10-11] MEDS: TRAZODONE 100 MG TABLET PO SCH (20:14)
[2018-10-11] MEDS: risperiDONE 1 MG TABLET PO SCH (20:19)
--- NOTE | 2018-10-11 20:19 | NUR ---
PRN Nicotine Gum Pt requested nicotine gum. Given per order. Will monitor effect.
--- NOTE | 2018-10-11 21:19 | NUR ---
Reassess PRN Nicotine gum Effective. Pt resting with eyes closed. Respirations are even and unlabored. Continue to monitor.
--- NOTE | 2018-10-12 | NUR ---
CIWA/COWS deferred/Vitals refused Pt resting with eyes closed. Respirations are even and unlabored. CIWA/COWS deferred and pt refused vitals.
--- NOTE | 2018-10-12 04:00 | NUR ---
CIWA/COWS deferred/Vitals refused Pt resting with eyes closed. Respirations are even and unlabored. CIWA/COWS deferred and pt refused vitals. Continue to monitor.
--- NOTE | 2018-10-12 06:39 | NUR ---
End of Shift Endorsing 22 year old female patient admitted to [facility] 10/06/18 for medically supervised withdrawal from Benzodiazepines and Opiates. Pt completed 5 day Valium and 5 day Subutex taper. Last CIWA 8 . Pt received PRN Nicotine gum on shift mechanic. Pt resting with eyes closed. Respirations are even and unlabored. Bed low, side rails up x 2, and call martinez in reach. PO intake 710 ml, voided 2, BM x 0, and slept 9 hours.
--- NOTE | 2018-10-12 07:44 | NUR ---
Start of shift Pt is here for medically supervised withdrawal of benzos and opiates. Pt completed 5 day Valium and Subutex taper. At 1999 last COWS 8, CIWA 8. Pt to be discharged to [facility]. Encouraged Pt to participate in group therapy sessions today to identify positive coping skills to maintain sobriety. All safety measures in place, bed locked/low position. Will continue to monitor for withdrawal symptoms.
[2018-10-12 08:00] VITALS: BP 105/61
[2018-10-12] MEDS: risperiDONE 0.5 MG TABLET PO SCH (08:24)
[2018-10-12] MEDS: MULTIVITAMINS,THERAPEUTIC TABLET PO SCH (08:24)
[2018-10-12 08:25] VITALS: BP 105/61
[2018-10-12] MEDS: GABAPENTIN 300 MG CAPSULE PO SCH (08:25)
[2018-10-12] MEDS: METOPROLOL TARTRATE 25 MG TABLET PO SCH (08:25)
[2018-10-12] MEDS: METHOCARBAMOL 750 MG TABLET PO PRN (09:08)
--- NOTE | 2018-10-12 09:10 | NUR ---
PRN Robaxin 750 mg PO for generalized body aches.
--- NOTE | 2018-10-12 09:48 | NUR ---
Discharge note- Pt has been discharged from [facility]. Pt is in stable condition, vitals WNL. Denies suicidal and homicidal ideations at this time. All documentation has been completed, paperwork signed and dated. Pt left with all her belongings, medications, and prescriptions. Pt has been discharged on 10/12/18 at 0945. notified.
== END 2018-10-12 09:45 | disposition other institution (70) | DRG 895 ==
LOC: SRC 16:39
PROVIDERS: ADMIT Family Medicine Addiction Medicine; ATTEND Family Medicine Addiction Medicine
PROC: HZ2ZZZZ Detoxification Services for Substance Abuse Treatment (ICD-10-PCS; principal; 2018-10-06)
PROC: HZ31ZZZ Individual Counseling for Substance Abuse Treatment, Behavioral (ICD-10-PCS; 2018-10-08)
PROC: HZ41ZZZ Group Counseling for Substance Abuse Treatment, Behavioral (ICD-10-PCS; 2018-10-11)
DX: F11.23 Opioid dependence with withdrawal (principal); F41.1 Generalized anxiety disorder; F13.230 Sedative, hypnotic or anxiolytic dependence with withdrawal, uncomplicated; Z81.8 Family history of other mental and behavioral disorders; Z81.4 Family history of other substance abuse and dependence; Z59.0 Homelessness; F17.210 Nicotine dependence, cigarettes, uncomplicated; G47.00 Insomnia, unspecified; Z91.5 Personal history of self-harm; F12.10 Cannabis abuse, uncomplicated; G40.909 Epilepsy, unspecified, not intractable, without status epilepticus; F31.9 Bipolar disorder, unspecified; E83.42 Hypomagnesemia; Z79.899 Other long term (current) drug therapy; Z91.89 Other specified personal risk factors, not elsewhere classified
CPT/HCPCS: 36415; 70030-TC; 80307; 80324; 80361; 83735; 84443; 84703; 85025; 86580; 86592; 86705; 86803; 87340; 87806; G0480; Q0162